=== PATIENT | female | born 1940 | race Caucasian/White ===

== ENCOUNTER 2021-03-27 14:05 | Inpatient (IN) | payer MEDICARE, OTHER ==
[~2021-03-27] VITALS: Ht 160 cm; Wt 55.2 kg
--- NOTE | 2021-03-27 15:00 | NUR ---
Admission Note with Justification for Admission to [facility] Patient admitted to [facility] for protective oversight for emergency stabilization of acute psychiatric crisis. Pt admitted from: SNF Mode of arrival: Secure Transport Accompanied By: Secure Transport Precipitating behaviors that initiated intake and admission: thinks staff are pushing her out of her chair, delusional- thinks she is going to win [employer] sweepstakes, anxious, demanding to leave and live on her own, agitated, refusing meds r/t paranoia, thinks people are stealing from her and becomes irritable with reality orientation, calling 911 from [facility] to report Description of failure of out patient attempts at stabilization in previous setting list behavior and medication trials: hospital, hospitalist recommends in pt tx, alprazolam prn Behaviors and assessment findings upon admission: Pt is very pleasant, social and cooperative with assessment. She is A&O x3. She is upset that she has been given a dementia diagnosis because she does not feel it is accurate "ask anyone I know and they'll tell you the same thing". Pt admitted to throwing herself out of her chair at facility when she did not get her way and that's "where I got all my bruises". Pt has cellulitis in BLLE that is currently being treated with antibiotics. She c/o pain in her neck and knees that is usually relieved by voltaren gel. Pt assisted into bed as she wished to lay down because her neck hurt. Will continue to monitor. Plan: Admit for protective oversight for adjustment and stabilization of medications, behaviors and mood. Intense treatment regimen including groups, medication adjustments, therapy, consistent regimen for ADL's, self care, and sleep hygiene. Daily monitoring by Inpatient staff, Psychiatry, and Medical Physician.
[2021-03-27] MEDS ORDERED: LINE600T12 PO (15:19)
[2021-03-27] MEDS ORDERED: OXYB10TA26 PO (15:19)
[2021-03-27] MEDS ORDERED: LEVO100T5 PO (15:19)
[2021-03-27] MEDS ORDERED: POLY2500 PO (15:19)
[2021-03-27] MEDS ORDERED: NYST15PO9 TP (15:19)
[2021-03-27] MEDS ORDERED: DICL100G28 TP (15:19)
[2021-03-27] MEDS ORDERED: FURO40TA4 PO (15:19)
[2021-03-27] MEDS ORDERED: NAPH15DR56 OU (15:19)
[2021-03-27] MEDS ORDERED: HYDR200T5 PO (15:19)
[2021-03-27] MEDS ORDERED: LORA10TA3 PO (15:19)
[2021-03-27] MEDS ORDERED: MUPI15CR8 TP (15:55)
[2021-03-27 15:59] VITALS: BP 97/58
[2021-03-27] MEDS ORDERED: MAGNESIUM HYDROXIDE 2,400 MG/30 ML ORAL.SUSP. PO PRN (16:00)
[2021-03-27] MEDS ORDERED: METHYL SALICYLATE/MENTHOL TOPICAL OINTMENT 57GM TUBE. TP PRN (16:00)
[2021-03-27] MEDS ORDERED: MAG HYDROX/AL HYDROX/SIMETH 30 ML ORAL.SUSP PO PRN (16:00)
[2021-03-27] MEDS ORDERED: MECL-75 PO (17:04)
[2021-03-27] MEDS ORDERED: PRED1TAB PO (17:04)
[2021-03-27] MEDS ORDERED: NYST15CR TP (17:04)
[2021-03-27] MEDS ORDERED: ACET500T68 PO (17:04)
[2021-03-27] MEDS ORDERED: ETAN50SY SQ (17:04)
[2021-03-27] MEDS ORDERED: ALPR0.254 PO (17:04)
[2021-03-27] MEDS ORDERED: ACET500C2 PO (17:04)
[2021-03-27] MEDS ORDERED: NYSTATIN 100,000 UNIT/GM TOPICAL CREAM 15GM TUBE. TP PRN (18:45)
[2021-03-27] MEDS ORDERED: NYSTATIN TOPICAL POWDER 15GM BOTTLE. TP PRN (18:45)
[2021-03-27] MEDS ORDERED: ACETAMINOPHEN 500 MG TABLET PO PRN (18:45)
[2021-03-27] MEDS ORDERED: MUPIROCIN 2% TOPICAL OINTMENT 22GM TUBE. TP PRN (19:15)
[2021-03-27] MEDS ORDERED: MECLIZINE 12.5 MG TABLET. PO PRN (19:15)
[2021-03-27] MEDS ORDERED: TETRAHYDROZOLINE 0.05% OPHTH SOLUTION 15ML BOTTLE. OU PRN (19:15)
[2021-03-27 20:16] LABS: BASO % 1 % (0-3); EOS # 0.1 x10^3/uL (0.0-0.7); EOS % 2 % (0-3); HEMATOCRIT 29.4 % (36.0-47.0); HEMOGLOBIN 9.4 g/dL (12.0-15.5); LYMPH # 2.5 x10^3/uL (1.0-4.8); LYMPH % 46 % (24-48); MEAN CORPUSCULAR HEMOGLOBIN 29 pg (25-35); MEAN CORPUSCULAR HGB CONC 32 g/dL (31-37); MEAN CORPUSCULAR VOLUME 90 fL (79-100); MONO # 0.7 x10^3/uL (0.0-1.1); MONO % 13 % (0-9); NEUT # 2.1 x10^3uL (1.8-7.7); NEUT % 38 % (31-73); PLATELET COUNT 273 x10^3/uL (140-400); RED BLOOD COUNT 3.26 x10^6/uL (3.50-5.40); RED CELL DISTRIBUTION WIDTH 16.1 % (11.5-14.5); WHITE BLOOD COUNT 5.4 x10^3/uL (4.0-11.0)
[2021-03-27 20:31] LABS: ALBUMIN 3.3 g/dL (3.4-5.0); ALBUMIN/GLOBULIN RATIO 0.8 (1.0-1.7); CALCIUM 9.6 mg/dL (8.5-10.1); CREATININE 1.3 mg/dL (0.6-1.0); GFR 39.4; MAGNESIUM 2.3 mg/dL (1.8-2.4); POTASSIUM 4.8 mmol/L (3.5-5.1); TOTAL BILIRUBIN 0.2 mg/dL (0.2-1.0); TOTAL PROTEIN 7.5 g/dL (6.4-8.2)
[2021-03-27] MEDS: LINEZOLID 600 MG TABLET PO SCH (20:58)
[2021-03-27] MEDS: DICLOFENAC SODIUM 1% TOPICAL GEL 100GM TUBE. TP SCH (20:58)
--- NOTE | 2021-03-27 22:02 | PDOC ---
Exam Note: Baljinder Note: Please also refer to the separate dictated note~for this date of service dictated separately.~Patient seen individually. Discussed the patient with Nursing staff reviewed the chart.~Reviewed interim history and current functioning. Reviewed vital signs,~Labs/ Radiology~and current medications noted below. Continue current treatment with the changes noted in the dictated addendum note Assessment: Vital Signs/I&O: Vital Signs Date Time Temp Pulse Resp B/P (MAP) Pulse Ox O2 Delivery O2 Flow Rate FiO2 03/27/21 15:59 97.5 96 18 97/58 (71) 93 Labs: Laboratory Tests Test 03/27/21 20:06 White Blood Count 5.4 x10^3/uL (4.0-11.0) Red Blood Count 3.26 x10^6/uL (3.50-5.40) L Hemoglobin 9.4 g/dL (12.0-15.5) L Hematocrit 29.4 % (36.0-47.0) L Mean Corpuscular Volume 90 fL (79-100) Mean Corpuscular Hemoglobin 29 pg (25-35) Mean Corpuscular Hemoglobin Concent 32 g/dL (31-37) Red Cell Distribution Width 16.1 % (11.5-14.5) H Platelet Count 273 x10^3/uL (140-400) Neutrophils (%) (Auto) 38 % (31-73) Lymphocytes (%) (Auto) 46 % (24-48) Monocytes (%) (Auto) 13 % (0-9) H Eosinophils (%) (Auto) 2 % (0-3) Basophils (%) (Auto) 1 % (0-3) Neutrophils # (Auto) 2.1 x10^3uL (1.8-7.7) Lymphocytes # (Auto) 2.5 x10^3/uL (1.0-4.8) Monocytes # (Auto) 0.7 x10^3/uL (0.0-1.1) Eosinophils # (Auto) 0.1 x10^3/uL (0.0-0.7) Basophils # (Auto) 0.0 x10^3/uL (0.0-0.2) D-Dimer (Melina) 0.55 mg/L (0.00-0.50) H Sodium Level 142 mmol/L (136-145) Potassium Level 4.8 mmol/L (3.5-5.1) Chloride Level 108 mmol/L (98-107) H Carbon Dioxide Level 27 mmol/L (21-32) Anion Gap 7 (6-14) Blood Urea Nitrogen 22 mg/dL (7-20) H Creatinine 1.3 mg/dL (0.6-1.0) H Estimated GFR (Cockcroft-Gault) 39.4 BUN/Creatinine Ratio 17 (6-20) Glucose Level 124 mg/dL (70-99) H Calcium Level 9.6 mg/dL (8.5-10.1) Magnesium Level 2.3 mg/dL (1.8-2.4) Total Bilirubin 0.2 mg/dL (0.2-1.0) Aspartate Amino Transferase (AST) 15 U/L (15-37) Alanine Aminotransferase (ALT) 17 U/L (14-59) Alkaline Phosphatase 73 U/L (46-116) Total Protein 7.5 g/dL (6.4-8.2) Albumin 3.3 g/dL (3.4-5.0) L Albumin/Globulin Ratio 0.8 (1.0-1.7) L Current Medications: Meds: Laboratory Tests Test 03/27/21 20:06 White Blood Count 5.4 x10^3/uL Red Blood Count 3.26 x10^6/uL Hemoglobin 9.4 g/dL Hematocrit 29.4 % Mean Corpuscular Volume 90 fL Mean Corpuscular Hemoglobin 29 pg Mean Corpuscular Hemoglobin Concent 32 g/dL Red Cell Distribution Width 16.1 % Platelet Count 273 x10^3/uL Neutrophils (%) (Auto) 38 % Lymphocytes (%) (Auto) 46 % Monocytes (%) (Auto) 13 % Eosinophils (%) (Auto) 2 % Basophils (%) (Auto) 1 % Neutrophils # (Auto) 2.1 x10^3uL Lymphocytes # (Auto) 2.5 x10^3/uL Monocytes # (Auto) 0.7 x10^3/uL Eosinophils # (Auto) 0.1 x10^3/uL Basophils # (Auto) 0.0 x10^3/uL D-Dimer (Melina) 0.55 mg/L Sodium Level 142 mmol/L Potassium Level 4.8 mmol/L Chloride Level 108 mmol/L Carbon Dioxide Level 27 mmol/L Anion Gap 7 Blood Urea Nitrogen 22 mg/dL Creatinine 1.3 mg/dL Estimated GFR (Cockcroft-Gault) 39.4 BUN/Creatinine Ratio 17 Glucose Level 124 mg/dL Calcium Level 9.6 mg/dL Magnesium Level 2.3 mg/dL Total Bilirubin 0.2 mg/dL Aspartate Amino Transf (AST/SGOT) 15 U/L Alanine Aminotransferase (ALT/SGPT) 17 U/L Alkaline Phosphatase 73 U/L Total Protein 7.5 g/dL Albumin 3.3 g/dL Albumin/Globulin Ratio 0.8 Current Medications Medications (Trade) Dose Ordered Sig/Yajaira Route PRN Reason Start Time Stop Time Status Last Admin Dose Admin Multi-Ingredient Ointment (Analgesic Brewster) 1 debbie PRN QID PRN TP MUSCLE PAIN 03/27/21 16:00 Al Hydroxide/Mg Hydroxide (Mylanta Plus Xs) 15 ml PRN AFTMEALHC PRN PO DYSPEPSIA 03/27/21 16:00 Magnesium Hydroxide (Milk Of Magnesia) 2,400 mg PRN QHS PRN PO CONSTIPATION 03/27/21 16:00 Acetaminophen (Tylenol) 1,000 mg PRN Q8HRS PRN PO MILD PAIN / TEMP > 100.3'F 03/27/21 18:45 UNV Alprazolam (Xanax) 0.25 mg PRN Q4HRS PRN PO ANXIETY / AGITATION 03/27/21 18:45 Diclofenac Sodium (Voltaren) 1 debbie QID TP 03/27/21 21:00 03/27/21 20:58 Furosemide (Lasix) 40 mg DAILY PO 03/28/21 09:00 Hydroxychloroquine Sulfate (Plaquenil) 200 mg DAILY PO 03/28/21 09:00 Levothyroxine Sodium (Synthroid) 100 mcg DAILY06 PO 03/28/21 06:00 Linezolid (Zyvox) 600 mg BID PO 03/27/21 21:00 03/31/21 09:01 03/27/21 20:58 Nystatin (Mycostatin) 1 debbie PRN BID PRN TP RASH 03/27/21 18:45 Nystatin (Nystop) 1 debbie PRN BID PRN TP RASH 03/27/21 18:45 Prednisone (Prednisone) 4 mg DAILY PO 03/28/21 09:00 Acetaminophen (Tylenol) 1,000 mg PRN Q6HRS PRN PO MILD PAIN / TEMP > 100.3'F 03/27/21 19:15 Non-Formulary Medication (Etanercept (Enbrel)) 50 mg WEEKLY SQ 04/03/21 09:00 UNV Cetirizine HCl (ZyrTEC) 10 mg DAILY PO 03/28/21 09:00 Meclizine HCl (Antivert) 25 mg PRN TID PRN PO DIZZINESS 03/27/21 19:15 Mupirocin (Bactroban) 1 debbie PRN BID PRN TP SORES ON EXTREMITIES 03/27/21 19:15 Tetrahydrozoline HCl (Murine) 1 drop PRN TID PRN OU dry/itchy eyes 03/27/21 19:15 Oxybutynin Chloride (Ditropan) 5 mg BID PO 03/28/21 09:00 Polyethylene Glycol (miraLAX) 17 gm DAILY PO 03/28/21 09:00 Current Medications Medications (Trade) Dose Ordered Sig/Yajaira Route PRN Reason Start Time Stop Time Status Last Admin Dose Admin Diclofenac Sodium (Voltaren) 1 debbie QID TP 03/27/21 21:00 03/27/21 20:58 Linezolid (Zyvox) 600 mg BID PO 03/27/21 21:00 03/31/21 09:01 03/27/21 20:58 I have reviewed the current psychotropics carefully including drug interactions. Risk benefit ratio favors no change other than as noted in my dictated progress note. Diagnosis: Problems: (1) Major depressive disorder with psychotic features DAMIR BOWIE MD Mar 27, 2021 22:01
--- NOTE | 2021-03-28 00:14 | NUR ---
Nursing Note The patient was located in her room for her assessment and medication pass. The patient was very pleasant and interactive with this nurse and talked about her love of dogs. The patient was alert to name date and location. The patient was compliant with her medication and took them whole. The patient is currently sleeping in her room.
[2021-03-28] MEDS: LEVOTHYROXINE 100 MCG TABLET PO SCH (05:56)
[2021-03-28 06:03] VITALS: BP 114/70
[2021-03-28] MEDS: OXYBUTYNIN CHLORIDE 5 MG TABLET PO SCH ×2 (08:41→20:35)
[2021-03-28] MEDS: POLYETHYLENE GLYCOL 3350 17 GM PACKET. PO SCH (08:41)
[2021-03-28] MEDS: LINEZOLID 600 MG TABLET PO SCH ×2 (08:41→21:16)
[2021-03-28] MEDS: HYDROXYCHLOROQUINE 200 MG TABLET PO SCH (08:41)
[2021-03-28] MEDS: FUROSEMIDE 40 MG TABLET PO SCH (08:41)
[2021-03-28] MEDS: CETIRIZINE HCL 10 MG TABLET PO SCH (08:41)
[2021-03-28] MEDS: predniSONE 1 MG TABLET PO SCH (08:41)
[2021-03-28] MEDS: ACETAMINOPHEN 500 MG TABLET PO PRN (08:42)
[2021-03-28] MEDS: DICLOFENAC SODIUM 1% TOPICAL GEL 100GM TUBE. TP SCH ×4 (08:46→20:35)
--- NOTE | 2021-03-28 09:44 | NUR ---
Pt A&O to name, , date, and location. She did not engage much further during assessment d/t c/o 10 pain in her R shoulder. PRN Acetaminophen 650 mg PO administered along with scheduled Voltaren gel applied topically. Pt assisted back into bed after breakfast per her request in hopes that rest will also alleviate the pain. Reassessment pending. She is compliant with whole medications. She is absent of SI/HI behaviors, denies VH/AH/delusions when asked. She is appropriate in her interactions and is able to make her needs known. Plan of care continues, will pass to next shift.
--- NOTE | 2021-03-28 09:54 | NUR ---
Lynne has [employer] insurance. Call placed to Ammy at [phone] to inform of admit and obtain authorization. Authorization number is [id number]. Next review will be due on 03/31/21. Call reference number for today's call is the authorization number noted above.
--- NOTE | 2021-03-28 10:20 | NUR ---
ACTIVITY THERAPY ASSESSMENT completed based on notes, observation and interview. Pt was laying in bed but willing to answer assessment questions. Pt was hyperverbal and hard to understand during interview. STRATEGIC MANAGER, MC asked pt what she enjoys doing for fun and she said "coloring pictures." Pt began to speak off topic for awhile and was hard to redirect. Pt denied a dementia diagnosis but said that she does have a bipolar diagnosis. Pt was able to answer orientation questions but expressed some frustration when answering and said that she doesn't have memory problems. Pt began to speak off topic again and talked in length about her family. Pt said that she has strained relationship with her two sons. Per notes pt has been compliant with medications and pleasant. Initial goal aimed to increase relaxation and socialization skills. Pt will participate in at least three Activity Therapy sessions per week.
[2021-03-28 13:51] LABS: BACTERIA,URINE 0 /HPF (0-FEW); BILIRUBIN,URINE NEG (NEG); CLARITY,URINE CLEAR; COLOR,URINE YELLOW; GLUCOSE,URINE NEG (NEG); NITRITE,URINE NEG (NEG); RBC,URINE RARE /HPF (0-2); SQUAMOUS EPITHELIAL CELL,UR OCC /LPF; UROBILINOGEN,URINE 0.2 mg/dL (0.2 mg/dL); WBC,URINE 0 /HPF (0-4)
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
[2021-03-28 15:39] VITALS: BP 102/57
[2021-03-28 18:46] LABS: THYROID STIM HORMONE (TSH) 2.851 uIU/mL (0.358-3.740)
--- NOTE | 2021-03-28 19:30 | HP ---
ADMIT DATE: 03/27/2021 PSYCHIATRIC ADMISSION HISTORY/EVALUATION This is a late entry, date of service 03/27/2021, covers the elements not covered in my initial note 03/27/2021. I met with the patient in the evening of 03/27/2021, discussed with Yarelis Santacruz, installation coordinator and nursing staff. IDENTIFYING DATA: The patient is an 80-year-old female referred to us from [facility] in [place], [place] with worsening diagnosis of major depressive disorder with psychotic features. She has been agitated at the facility, stated she was winning millions from sweepstakes, believing people were going through her mail to steal money, stated she was part of a group that takes care of dogs at the [facility]. She was accusing staff for pushing her out of her chair, repeatedly calling 911, refusing medications and calling out all hours of the day and night. She had failed outpatient psychiatric interventions with an acute exacerbation of her bipolar disorder and was referred for inpatient psychiatric stabilization. CHIEF COMPLAINT: "They would not take care of me when I was medically critical. I was having bowel problems and they did not take care of me. I am having heart problems. They are stealing things from me and my jewelry. 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 Apparently, she has two sons and they have no contact with her because of her mood swings and agitation possibly consequent to the bipolar disorder. She has been at the [facility] for some time, recently getting extremely psychotic, manic, grandiose, paranoid, disruptive and unmanageable. No active suicidal or homicidal ideation. PAST PSYCHIATRIC HISTORY: As above. MEDICAL HISTORY: Positive for anemia, external hemorrhoids, venous insufficiency, COPD, chronic constipation, cellulitis of legs, ulcer of foot, rheumatoid arthritis, degenerative joint disease, osteoporosis, edema, oropharyngeal dysphagia, urinary incontinence, functional urinary incontinence, chronic interstitial lung disease, chronic neck pain, bilateral osteoarthritis of knee, colon biopsy, thyroidectomy, cholecystectomy, right shoulder arthroplasty. ACCU-CHEKS: None. ALLERGIES: Negative. CODE STATUS: Full code. DIET: Heart healthy regular. Takes medications whole. Ambulates with walker with standby assist. CURRENT PSYCHOTROPICS: Xanax p.r.n. FAMILY HISTORY: Noncontributory. SOCIAL HISTORY: No alcohol, drug abuse, physical, sexual or elder abuse history is noted. The patient is not known to be a perpetrator. REACTION TO HOSPITALIZATION: The patient accepting reluctantly. ASSETS: Supportive living at the above facility. Her friend is her DPPOLA. REVIEW OF SYSTEMS: Ambulation impaired with walker. No CV, , pulmonary, eye system symptoms on review. MENTAL STATUS EXAM: The patient seen individually in the evening of 03/27/2021. She is oriented to self and situation. Speech coherent, rapid at times, quite manic, grandiose, paranoid. Abstraction fair. Computation impaired. Language function intact. Attention span short. Mood and affect, lability is evident. Attention span short. LABORATORY DATA: Reviewed. IMPRESSION: Bipolar 1 disorder, mixed with psychotic features; anxiety disorder, unspecified; impulse control disorder, unspecified, mild cognitive impairment. Rest unchanged from above. PLAN: Admit to geropsychiatry unit at [facility]. I will see the patient daily individually from a psychiatric standpoint, medical followup with Dr. Vo/Dr. Mahmood. Continue current psychotropics. Observe baseline, adjust as clinically indicated. Given a history of bipolar disorder may consider Depakote as a mood stabilizer. ESTIMATED LENGTH OF STAY: 10-12 days. DISPOSITION PLANS: Back to [facility] in [place] when she is psychiatrically stable. LUL MCBRIDE: VINNY/dewey TID: [id number]
[2021-03-28] MEDS: DOXYCYCLINE HYCLATE 100 MG TABLET PO SCH (20:35)
[2021-03-28] MEDS: LACTOBACILLUS RHAMNOSUS GG 1 CAPSULE. PO SCH (20:35)
[2021-03-28] MEDS: SMZ/TMP 800/160MG TABLET. PO SCH (20:35)
[2021-03-28] MEDS: MIRTAZAPINE 7.5 MG TABLET. PO SCH (20:35)
[2021-03-28] MEDS: risperiDONE 0.25 MG TABLET. PO SCH (20:35)
[2021-03-28 22:11] LABS: THYROXINE 8.2 ug/dL (4.5-12.0)
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
--- NOTE | 2021-03-29 01:03 | CONS ---
DATE OF CONSULTATION: 03/28/2021 ATTENDING PHYSICIAN: Dr. Bowie. REASON FOR CONSULTATION: We are asked to see the patient for medical consultation. HISTORY OF PRESENT ILLNESS: The patient is an 80-year-[place] is at a [facility]. She has profound dementia. She has impairment in her cognition. She has generalized debilitation and cellulitis in the legs. She has been refusing meds and thinks people are stealing from her and so paranoia is an issue. She is admitted here for further treatment and evaluation. She has a durable power of divorce attorney, Dr. Noble is her primary care doctor. PAST MEDICAL HISTORY: Gleaned from the chart. She has a longstanding history of degenerative arthritis along with hypothyroidism and urinary incontinence. CURRENT MEDICATIONS: Include Tylenol, alprazolam, diclofenac, Enbrel, Lasix, hydroxychloroquine, Synthroid, Zyvox for 5 days, loratadine, meclizine, ____, nystatin, oxybutynin, MiraLax, and prednisone. ALLERGIES: She has no known drug allergies. SOCIAL HISTORY: She is a nonsmoker, nondrinker. REVIEW OF SYSTEMS: Unobtainable. FAMILY HISTORY: Unobtainable. PHYSICAL EXAMINATION: GENERAL: When I saw her, this is a pleasant elderly, confused female. VITAL SIGNS: Her initial vital signs showed a blood pressure of 114/70, pulse is 97 and regular. She was afebrile, oxygen saturation 94% on room air. HEENT: Head is without trauma. Pupils are reactive. Sclerae nonicteric. The oropharynx is clear. She is edentulous. NECK: Supple, no bruits, no stridor. LUNGS: Good breath sounds. CARDIOVASCULAR: Regular heart tones. No gallop. ABDOMEN: Soft. EXTREMITIES: Showed 2+ edema. There is redness and erythema extending all the way up to her shins and knees with lines of demarcation. There are no open wounds that are obvious. NEUROLOGIC: Focally intact. She is profoundly confused. PERTINENT LABORATORY STUDIES: Her white count was 9400, hemoglobin 9.5 grams. Electrolytes within normal range. Creatinine 1.3 mg/dL. Transaminases are normal. Nonfasting blood sugar 124 mg/dL. ASSESSMENT: 1. This 80-year-old female is admitted with profound dementia and behavioral issues. 2. Bilateral cellulitis of the lower extremities. I believe this is a combination of stasis dermatitis and poor circulation. Most likely it is a Staphylococcus infection. 3. Anemia of chronic disease. 4. Questionable rheumatoid arthritis. She is on meds for rheumatoid. 5. Anemia of chronic disease. RECOMMENDATIONS: 1. Home meds were reviewed and continued. 2. I do not think we have Zyvox available here. I would recommend a combination of doxycycline 100 mg p.o. b.i.d. for 7 more days and Bactrim-DS 1 p.o. b.i.d. for 7 days for her infection. Thank you again for asking to see the patient for medical consultation. She is otherwise stable at this time. We should gladly follow along during her inpatient stay. She is a DNR per advanced directive, we will respect her advanced directive. POLY DR: Eun TID: [id number] CC: DAMIR BOWIE MD
[2021-03-29] MEDS: LEVOTHYROXINE 100 MCG TABLET PO SCH (05:31)
[2021-03-29 06:29] VITALS: BP 123/70
--- NOTE | 2021-03-29 07:41 | NUR ---
Morning dose of Linelozid held pending ABT review with Dr Vo.
[2021-03-29] MEDS: SMZ/TMP 800/160MG TABLET. PO SCH ×2 (08:26→20:24)
[2021-03-29] MEDS: FUROSEMIDE 40 MG TABLET PO SCH (08:26)
[2021-03-29] MEDS: DOXYCYCLINE HYCLATE 100 MG TABLET PO SCH ×2 (08:26→20:23)
[2021-03-29] MEDS: LACTOBACILLUS RHAMNOSUS GG 1 CAPSULE. PO SCH ×2 (08:26→20:23)
[2021-03-29] MEDS: OXYBUTYNIN CHLORIDE 5 MG TABLET PO SCH ×2 (08:26→20:23)
[2021-03-29] MEDS: POLYETHYLENE GLYCOL 3350 17 GM PACKET. PO SCH (08:26)
[2021-03-29] MEDS: SERTRALINE 25 MG TABLET. PO SCH (08:27)
[2021-03-29] MEDS: CETIRIZINE HCL 10 MG TABLET PO SCH (08:27)
[2021-03-29] MEDS: predniSONE 1 MG TABLET PO SCH (08:27)
[2021-03-29] MEDS: HYDROXYCHLOROQUINE 200 MG TABLET PO SCH (08:27)
--- NOTE | 2021-03-29 08:51 | PDOC ---
Exam Note: Baljinder Note: Lte entry for . Please also refer to the separate dictated note~for this date of service dictated separately.~Patient seen individually. Discussed the patient with Nursing staff reviewed the chart.~Reviewed interim history and current functioning. Reviewed vital signs,~Labs/ Radiology~and current medicat ions noted below. Continue current treatment with the changes noted in the dictated addendum note Assessment: Vital Signs/I&O: Vital Signs Date Time Temp Pulse Resp B/P (MAP) Pulse Ox O2 Delivery O2 Flow Rate FiO2 03/29/21 06:29 97.5 74 16 123/70 (87) 100 I & O 03/28/21 03/28/21 03/29/21 15:00 23:00 07:00 Intake Total 380 ml 450 ml Balance 380 ml 450 ml Labs: Laboratory Tests Test 03/28/21 13:00 Urine Collection Type Clean catch Urine Color Yellow Urine Clarity Clear Urine pH 6.0 Urine Specific [place] 1.020 Urine Protein Neg (NEG-TRACE) Urine Glucose (UA) Neg mg/dL (NEG) Urine Ketones (Stick) Neg mg/dL (NEG) Urine Blood Neg (NEG) Urine Nitrite Neg (NEG) Urine Bilirubin Neg (NEG) Urine Urobilinogen Dipstick 0.2 mg/dL (0.2 mg/dL) Urine Leukocyte Esterase Neg (NEG) Urine RBC Rare /HPF (0-2) Urine WBC 0 /HPF (0-4) Urine Squamous Epithelial Cells Occ /LPF Urine Bacteria 0 /HPF (0-FEW) Current Medications: Meds: Current Medications Medications (Trade) Dose Ordered Sig/Yajaira Route PRN Reason Start Time Stop Time Status Last Admin Dose Admin Furosemide (Lasix) 40 mg DAILY PO 03/28/21 09:00 03/29/21 08:26 Hydroxychloroquine Sulfate (Plaquenil) 200 mg DAILY PO 03/28/21 09:00 03/29/21 08:27 Prednisone (Prednisone) 4 mg DAILY PO 03/28/21 09:00 03/29/21 08:27 Cetirizine HCl (ZyrTEC) 10 mg DAILY PO 03/28/21 09:00 03/29/21 08:27 Oxybutynin Chloride (Ditropan) 5 mg BID PO 03/28/21 09:00 03/29/21 08:26 Polyethylene Glycol (miraLAX) 17 gm DAILY PO 03/28/21 09:00 03/29/21 08:26 Mirtazapine (Remeron) 7.5 mg QHS PO 03/28/21 21:00 03/28/21 20:35 Sertraline HCl (Zoloft) 25 mg DAILY PO 03/29/21 09:00 03/31/21 21:00 03/29/21 08:27 Risperidone (RisperDAL) 0.25 mg HS PO 03/28/21 21:00 03/28/21 20:35 Doxycycline Hyclate (Vibra-Tab) 100 mg BID PO 03/28/21 21:00 04/04/21 13:00 03/29/21 08:26 Trimethoprim/ Sulfamethoxazole (Bactrim Ds) 1 tab BID PO 03/28/21 21:00 04/04/21 13:00 03/29/21 08:26 Lactobacillus Rhamnosus (Culturelle) 1 cap BID PO 03/28/21 21:00 03/29/21 08:26 I have reviewed the current psychotropics carefully including drug interactions. Risk benefit ratio favors no change other than as noted in my dictated progress note. Diagnosis: Problems: (1) Bipolar disorder, current episode mixed, severe, with psychotic features (2) Anxiety disorder, unspecified (3) Impulse control disorder, unspecified (4) Mild cognitive impairment DAMIR BOWIE MD Mar 29, 2021 08:51
[2021-03-29] MEDS: LINEZOLID 600 MG TABLET PO SCH (09:00)
[2021-03-29] MEDS: DICLOFENAC SODIUM 1% TOPICAL GEL 100GM TUBE. TP SCH ×4 (09:00→20:26)
--- NOTE | 2021-03-29 09:26 | NUR ---
Pt A&O to name, , date, and location. She expresses relief that the swelling in her BLE has subsided a little bit, but states she is still experiencing pain. RLE is noticeably more swollen than LLE. Pt is currently ordered 3 ABT (Bactrim DS, Linezolid, and Doxycycline). Please see previous note about Linezolid being held. Pt has spent some of the morning coloring, and she expresses how much she enjoys doing artwork. She is compliant with whole medications. She is absent of SI/HI behaviors, denies VH/AH/delusions when asked. She is appropriate in her interactions and is able to make her needs known. Plan of care continues, will pass to next shift.
[2021-03-29 16:03] VITALS: BP 106/69
[2021-03-29] MEDS: risperiDONE 0.25 MG TABLET. PO SCH (20:23)
[2021-03-29] MEDS: MIRTAZAPINE 7.5 MG TABLET. PO SCH (20:23)
--- NOTE | 2021-03-29 21:38 | PDOC ---
Exam Note: Baljinder Note: Please also refer to the separate dictated note~for this date of service dictated separately.~Patient seen individually. Discussed the patient with Nursing staff reviewed the chart.~Reviewed interim history and current functioning. Reviewed vital signs,~Labs/ Radiology~and current medications noted below. Continue current treatment with the changes noted in the dictated addendum note Assessment: Vital Signs/I&O: Vital Signs Date Time Temp Pulse Resp B/P (MAP) Pulse Ox O2 Delivery O2 Flow Rate FiO2 03/29/21 16:03 98.8 94 19 106/69 (81) 95 Room Air I & O 03/28/21 03/28/21 03/29/21 15:00 23:00 07:00 Intake Total 380 ml 450 ml Balance 380 ml 450 ml Current Medications: Meds: Current Medications Medications (Trade) Dose Ordered Sig/Yajaira Route PRN Reason Start Time Stop Time Status Last Admin Dose Admin Multi-Ingredient Ointment (Analgesic [place]) 1 debbie PRN QID PRN TP MUSCLE PAIN 03/27/21 16:00 Al Hydroxide/Mg Hydroxide (Mylanta Plus Xs) 15 ml PRN AFTMEALHC PRN PO DYSPEPSIA 03/27/21 16:00 Magnesium Hydroxide (Milk Of Magnesia) 2,400 mg PRN QHS PRN PO CONSTIPATION 03/27/21 16:00 Acetaminophen (Tylenol) 1,000 mg PRN Q8HRS PRN PO MILD PAIN / TEMP > 100.3'F 03/27/21 18:45 UNV Alprazolam (Xanax) 0.25 mg PRN Q4HRS PRN PO ANXIETY / AGITATION 03/27/21 18:45 Diclofenac Sodium (Voltaren) 1 debbie QID TP 03/27/21 21:00 03/29/21 20:26 Furosemide (Lasix) 40 mg DAILY PO 03/28/21 09:00 03/29/21 08:26 Hydroxychloroquine Sulfate (Plaquenil) 200 mg DAILY PO 03/28/21 09:00 03/29/21 08:27 Levothyroxine Sodium (Synthroid) 100 mcg DAILY06 PO 03/28/21 06:00 03/29/21 05:31 Linezolid (Zyvox) 600 mg BID PO 03/27/21 21:00 03/29/21 10:25 DC 03/28/21 21:16 Nystatin (Mycostatin) 1 debbie PRN BID PRN TP RASH 03/27/21 18:45 Nystatin (Nystop) 1 debbie PRN BID PRN TP RASH 03/27/21 18:45 Prednisone (Prednisone) 4 mg DAILY PO 03/28/21 09:00 03/29/21 08:27 Acetaminophen (Tylenol) 1,000 mg PRN Q6HRS PRN PO MILD PAIN / TEMP > 100.3'F 03/27/21 19:15 03/28/21 08:42 Non-Formulary Medication (Etanercept (Enbrel)) 50 mg WEEKLY SQ 04/03/21 09:00 UNV Cetirizine HCl (ZyrTEC) 10 mg DAILY PO 03/28/21 09:00 03/29/21 08:27 Meclizine HCl (Antivert) 25 mg PRN TID PRN PO DIZZINESS 03/27/21 19:15 Mupirocin (Bactroban) 1 debbie PRN BID PRN TP SORES ON EXTREMITIES 03/27/21 19:15 Tetrahydrozoline HCl (Murine) 1 drop PRN TID PRN OU dry/itchy eyes 03/27/21 19:15 Oxybutynin Chloride (Ditropan) 5 mg BID PO 03/28/21 09:00 03/29/21 20:23 Polyethylene Glycol (miraLAX) 17 gm DAILY PO 03/28/21 09:00 03/29/21 08:26 Mirtazapine (Remeron) 7.5 mg QHS PO 03/28/21 21:00 03/29/21 20:23 Sertraline HCl (Zoloft) 25 mg DAILY PO 03/29/21 09:00 03/31/21 21:00 03/29/21 08:27 Sertraline HCl (Zoloft) 50 mg DAILY PO 04/01/21 09:00 Risperidone (RisperDAL) 0.25 mg HS PO 03/28/21 21:00 03/29/21 20:23 Doxycycline Hyclate (Vibra-Tab) 100 mg BID PO 03/28/21 21:00 04/04/21 13:00 03/29/21 20:23 Trimethoprim/ Sulfamethoxazole (Bactrim Ds) 1 tab BID PO 03/28/21 21:00 04/04/21 13:00 03/29/21 20:24 Lactobacillus Rhamnosus (Culturelle) 1 cap BID PO 03/28/21 21:00 03/29/21 20:23 Current Medications Medications (Trade) Dose Ordered Sig/Yajaira Route PRN Reason Start Time Stop Time Status Last Admin Dose Admin Sertraline HCl (Zoloft) 25 mg DAILY PO 03/29/21 09:00 03/31/21 21:00 03/29/21 08:27 I have reviewed the current psychotropics carefully including drug interactions. Risk benefit ratio favors no change other than as noted in my dictated progress note. Diagnosis: Problems: (1) Impulse control disorder, unspecified (2) Mild cognitive impairment (3) Anxiety disorder, unspecified (4) Bipolar disorder, current episode mixed, severe, with psychotic features DAMIR BOWIE MD Mar 29, 2021 21:38
--- NOTE | 2021-03-29 21:51 | PN ---
DATE: 03/28/2021 PSYCHIATRIC PROGRESS NOTE This is a late entry 03/28/2021 covers elements not covered in the initial note. HISTORY OF PRESENT ILLNESS: I met the patient on the evening of 03/28/2021 in her room at length and the patient was staffed at treatment team meeting with entire team in the morning including Andie Cardoso, and Yarelis Santacruz, record center coordinator and social service staff and [facility] activity therapy staff and MADAY Santana. The patient slept 3-1/2 hours previous night. The patient is alert, oriented x3, complains of pain in her shoulder. She may have a possible UTI. Her power of bankruptcy attorney is her cousin's as she has distanced herself from her sons who she states "they hate me." She does have a Staph cellulitis. REVIEW OF SYSTEMS: Ambulation impaired with walker. No CV, , pulmonary, eye system symptoms on review. MENTAL STATUS EXAMINATION: Oriented to herself, situation. Speech coherent, rapid, somewhat hyperverbal, consistent with her bipolar disorder and she readily admits and seems to understand her bipolar diagnosis. Abstraction fair. Computation impaired. Language function intact. Mood and affect labile, anxious, somewhat paranoid. No suicidal or homicidal ideation. She is distractable. LABORATORY DATA: Reviewed. IMPRESSION: Bipolar 1 disorder, mixed with psychotic features; anxiety disorder, unspecified; impulse control disorder, unspecified. PLAN: Start Remeron 7.5 mg p.o. at bedtime to help with her insomnia and anxiety, Risperdal 0.25 mg p.o. at bedtime, Zoloft 25 mg a day for 3 days, then 50 mg a day after that. We will consider low dose Depakote for her bipolar diagnosis, but we will first see how she does with the above changes and then decide. MARGARITA DR: Gamaliel TID: [id number]
--- NOTE | 2021-03-29 23:29 | NUR ---
Patient was in her room, in bed doing crossword puzzles. She stated she laughed and said she was "cheating" and looking at the answers as she went along. Patient in good spirits tonight, she was talking about how she enjoys playing [employer], entering [employer] and supporting charitable organizations. She stated that "[employer]" is her favorite organization because they help animals. Patient medication compliant and cooperative with staff. Patient stated that she felt that her left leg is less swollen today. Her right lower leg is reddened and warm to the touch, she has a diagnosis of Staph infection and is on two antibiotics for it.
--- NOTE | 2021-03-30 04:22 | NUR ---
Patient is awake and angry. She has asked to leave, and wanted to know who her DPOA is. When told the name of the DPOA she got angrier. Patient is stating we are dehydrating her. She currently has ice water available to her on the bedside table. She is demanding a Coke and was told that we cannot give her a Coke right now as it is 0400 and she needs to get some sleep. Will continue to monitor.
[2021-03-30] MEDS: LEVOTHYROXINE 100 MCG TABLET PO SCH (05:21)
[2021-03-30 06:17] VITALS: BP 110/71
[2021-03-30] MEDS: OXYBUTYNIN CHLORIDE 5 MG TABLET PO SCH ×2 (08:31→20:29)
[2021-03-30] MEDS: CETIRIZINE HCL 10 MG TABLET PO SCH (08:31)
[2021-03-30] MEDS: SMZ/TMP 800/160MG TABLET. PO SCH ×2 (08:31→20:29)
[2021-03-30] MEDS: FUROSEMIDE 40 MG TABLET PO SCH (08:31)
[2021-03-30] MEDS: LACTOBACILLUS RHAMNOSUS GG 1 CAPSULE. PO SCH ×2 (08:32→20:29)
[2021-03-30] MEDS: predniSONE 1 MG TABLET PO SCH (08:32)
[2021-03-30] MEDS: HYDROXYCHLOROQUINE 200 MG TABLET PO SCH (08:32)
[2021-03-30] MEDS: POLYETHYLENE GLYCOL 3350 17 GM PACKET. PO SCH (08:32)
[2021-03-30] MEDS: DOXYCYCLINE HYCLATE 100 MG TABLET PO SCH ×2 (08:32→20:29)
[2021-03-30] MEDS: SERTRALINE 25 MG TABLET. PO SCH (08:32)
[2021-03-30] MEDS: DICLOFENAC SODIUM 1% TOPICAL GEL 100GM TUBE. TP SCH ×4 (09:00→20:31)
--- NOTE | 2021-03-30 10:27 | NUR ---
Pt cooperative and appropriate this morning. She displays very well memory recall, such as recalling a visit from Dr Snyder the previous evening. She is A&Ox3, absent of SI/HI/VH/AH/delusions. She reports 5/10 pain in the R shoulder and knees. Scheduled Voltaren gel applied. She voices concern about how her RLE is noticeably more swollen than the LLE. She also appears to be concerned about having a bowel movement although she apparently had one on 03/28. She is compliant with whole medications. After breakfast she retired back to bed and appears to be resting comfortably. Plan of care continues, will pass to next shift.
--- NOTE | 2021-03-30 12:21 | PN ---
DATE: 03/29/2021 PSYCHIATRIC PROGRESS NOTE This is a late entry, 03/29/2021, covers the elements not covered in my initial note. SUBJECTIVE: The patient slept 6-1/4 hours the previous night. Discussed with MADAY Santana. The patient is compliant with medications. No overt delusions, but remains hyperverbal. We had a very lengthy discussion about her bipolar diagnosis and she is able to relate that she has had this for many years and at times finds her mind difficult to control as it races. She is not willing to go back to the [employer] [place] [facility] [place] and we addressed this, will defer to social service staff. REVIEW OF SYSTEMS: Ambulation impaired with walker. No CV, , pulmonary, eye system symptoms on review. MENTAL STATUS EXAMINATION: Reasonably oriented. Speech coherent, rapid at times. Abstraction fair. Computation impaired. Language function intact. Attention span short. Mood and affect labile. Labs reviewed. DIAGNOSES: Bipolar 1 disorder, mixed. Anxiety disorder, unspecified. Rest unchanged. PLAN: Continue psychotropics from initial note. We have initiated Remeron, Risperdal, Zoloft, may consider mood stabilizer, perhaps low dose Depakote if bipolar symptoms persist despite the above. Reviewed drug interactions, risk and benefit ratio. VINNY/JOHN DR: Gamaliel TID: [id number]
[2021-03-30 15:42] VITALS: BP 97/66
[2021-03-30] MEDS: MIRTAZAPINE 7.5 MG TABLET. PO SCH (20:29)
[2021-03-30] MEDS: risperiDONE 0.25 MG TABLET. PO SCH (20:29)
[2021-03-30] MEDS: traZODone 50 MG TABLET. PO PRN (20:31)
[2021-03-30] MEDS: ALPRAZolam 0.25 MG TABLET PO PRN (20:47)
--- NOTE | 2021-03-30 21:36 | PDOC ---
Exam Note: Baljinder Note: Please also refer to the separate dictated note~for this date of service dictated separately.~Patient seen individually. Discussed the patient with Nursing staff reviewed the chart.~Reviewed interim history and current functioning. Reviewed vital signs,~Labs/ Radiology~and current medications noted below. Continue current treatment with the changes noted in the dictated addendum note Assessment: Vital Signs/I&O: Vital Signs Date Time Temp Pulse Resp B/P (MAP) Pulse Ox O2 Delivery O2 Flow Rate FiO2 03/30/21 15:42 98.8 94 16 97/66 (76) 96 Room Air I & O 03/29/21 03/29/21 03/30/21 15:00 23:00 07:00 Intake Total 600 ml 480 ml Balance 600 ml 480 ml Current Medications: Meds: Current Medications Medications (Trade) Dose Ordered Sig/Yajaira Route PRN Reason Start Time Stop Time Status Last Admin Dose Admin Multi-Ingredient Ointment (Analgesic [place]) 1 debbie PRN QID PRN TP MUSCLE PAIN 03/27/21 16:00 Al Hydroxide/Mg Hydroxide (Mylanta Plus Xs) 15 ml PRN AFTMEALHC PRN PO DYSPEPSIA 03/27/21 16:00 Magnesium Hydroxide (Milk Of Magnesia) 2,400 mg PRN QHS PRN PO CONSTIPATION 03/27/21 16:00 Acetaminophen (Tylenol) 1,000 mg PRN Q8HRS PRN PO MILD PAIN / TEMP > 100.3'F 03/27/21 18:45 UNV Alprazolam (Xanax) 0.25 mg PRN Q4HRS PRN PO ANXIETY / AGITATION 03/27/21 18:45 03/30/21 20:47 Diclofenac Sodium (Voltaren) 1 debbie QID TP 03/27/21 21:00 03/30/21 20:31 Furosemide (Lasix) 40 mg DAILY PO 03/28/21 09:00 03/30/21 08:31 Hydroxychloroquine Sulfate (Plaquenil) 200 mg DAILY PO 03/28/21 09:00 03/30/21 08:32 Levothyroxine Sodium (Synthroid) 100 mcg DAILY06 PO 03/28/21 06:00 03/30/21 05:21 Linezolid (Zyvox) 600 mg BID PO 03/27/21 21:00 03/29/21 10:25 DC 03/28/21 21:16 Nystatin (Mycostatin) 1 debbie PRN BID PRN TP RASH 03/27/21 18:45 Nystatin (Nystop) 1 debbie PRN BID PRN TP RASH 03/27/21 18:45 Prednisone (Prednisone) 4 mg DAILY PO 03/28/21 09:00 03/30/21 08:32 Acetaminophen (Tylenol) 1,000 mg PRN Q6HRS PRN PO MILD PAIN / TEMP > 100.3'F 03/27/21 19:15 03/28/21 08:42 Non-Formulary Medication (Etanercept (Enbrel)) 50 mg WEEKLY SQ 04/03/21 09:00 UNV Cetirizine HCl (ZyrTEC) 10 mg DAILY PO 03/28/21 09:00 03/30/21 08:31 Meclizine HCl (Antivert) 25 mg PRN TID PRN PO DIZZINESS 03/27/21 19:15 Mupirocin (Bactroban) 1 debbie PRN BID PRN TP SORES ON EXTREMITIES 03/27/21 19:15 Tetrahydrozoline HCl (Murine) 1 drop PRN TID PRN OU dry/itchy eyes 03/27/21 19:15 Oxybutynin Chloride (Ditropan) 5 mg BID PO 03/28/21 09:00 03/30/21 20:29 Polyethylene Glycol (miraLAX) 17 gm DAILY PO 03/28/21 09:00 03/30/21 08:32 Mirtazapine (Remeron) 7.5 mg QHS PO 03/28/21 21:00 03/30/21 20:29 Sertraline HCl (Zoloft) 25 mg DAILY PO 03/29/21 09:00 03/31/21 21:00 03/30/21 08:32 Sertraline HCl (Zoloft) 50 mg DAILY PO 04/01/21 09:00 Risperidone (RisperDAL) 0.25 mg HS PO 03/28/21 21:00 03/30/21 20:29 Doxycycline Hyclate (Vibra-Tab) 100 mg BID PO 03/28/21 21:00 04/04/21 13:00 03/30/21 20:29 Trimethoprim/ Sulfamethoxazole (Bactrim Ds) 1 tab BID PO 03/28/21 21:00 04/04/21 13:00 03/30/21 20:29 Lactobacillus Rhamnosus (Culturelle) 1 cap BID PO 03/28/21 21:00 03/30/21 20:29 Divalproex Sodium (Depakote Sprinkles) 250 mg BID@0900,1700 PO 03/31/21 09:00 Trazodone HCl (Desyrel) 50 mg PRN QHS PRN PO INSOMNIA, MAY REPEAT X1 03/30/21 20:00 03/30/21 20:31 Current Medications Medications (Trade) Dose Ordered Sig/Yajaira Route PRN Reason Start Time Stop Time Status Last Admin Dose Admin Trazodone HCl (Desyrel) 50 mg PRN QHS PRN PO INSOMNIA, MAY REPEAT X1 03/30/21 20:00 03/30/21 20:31 I have reviewed the current psychotropics carefully including drug interactions. Risk benefit ratio favors no change other than as noted in my dictated progress note. Diagnosis: Problems: (1) Bipolar disorder, current episode mixed, severe, with psychotic features (2) Impulse control disorder, unspecified (3) Mild cognitive impairment (4) Anxiety disorder, unspecified DAMIR BOWIE MD Mar 30, 2021 21:36
--- NOTE | 2021-03-30 22:45 | NUR ---
Pt sitting in hallway this evening. Pt highly anxious, hyperverbal with garbled speech. Pt repeatedly stating that she needs to get into her lockbox because she has one million dollars in there. Pt also somatic; stating that she has a bowel obstruction and was witnessed attempting to dig herself out. Pt has active bowel sounds. Will pass on pt's complaint to dayshift. Compliant with whole medications. PRN Trazodone and Xanax administered with HS medications.
[2021-03-31] MEDS: LEVOTHYROXINE 100 MCG TABLET PO SCH (05:45)
[2021-03-31 06:01] VITALS: BP 138/83
[2021-03-31] MEDS: DICLOFENAC SODIUM 1% TOPICAL GEL 100GM TUBE. TP SCH ×4 (09:00→20:48)
[2021-03-31] MEDS: POLYETHYLENE GLYCOL 3350 17 GM PACKET. PO SCH (09:04)
[2021-03-31] MEDS: SMZ/TMP 800/160MG TABLET. PO SCH ×2 (09:05→20:48)
[2021-03-31] MEDS: predniSONE 1 MG TABLET PO SCH (09:05)
[2021-03-31] MEDS: LACTOBACILLUS RHAMNOSUS GG 1 CAPSULE. PO SCH ×2 (09:05→20:48)
[2021-03-31] MEDS: CETIRIZINE HCL 10 MG TABLET PO SCH (09:05)
[2021-03-31] MEDS: DOXYCYCLINE HYCLATE 100 MG TABLET PO SCH ×2 (09:05→20:48)
[2021-03-31] MEDS: SERTRALINE 25 MG TABLET. PO SCH (09:05)
[2021-03-31] MEDS: OXYBUTYNIN CHLORIDE 5 MG TABLET PO SCH ×2 (09:05→20:48)
[2021-03-31] MEDS: FUROSEMIDE 40 MG TABLET PO SCH (09:05)
[2021-03-31] MEDS: DIVALPROEX 125 MG CAP.SPRINK PO SCH ×2 (09:05→17:41)
[2021-03-31] MEDS: HYDROXYCHLOROQUINE 200 MG TABLET PO SCH (09:06)
--- NOTE | 2021-03-31 11:41 | EKG ---
[address] [address] Test Date: 2021-03-27 Test Time: 20:31:42 Pat Name: ZAMZAM DAVIS Department: Room: [address] [place] [address] Gender: F Research Biostatistician: : 1940 Requested By: DAMIR BOWIE Order Number: [id number] Reading MD: Gold Duran MD Measurements Intervals [place] Rate: P: [place]: QRS: QRSD: T: QT: QTc: Interpretive Statements SR LBBB Electronically Signed On 03-31-2021 11:40:32 CDT by Gold Duran MD
--- NOTE | 2021-03-31 12:16 | NUR ---
[employer] review completed with Ambreen at [phone], ext [phone]. Next review is due on 04/02/21, 11:30am RESEARCH ADMINISTRATOR.
--- NOTE | 2021-03-31 15:03 | NUR ---
Nursing note: Pt asleep in bed at time of AM med pass and assessment. She was able to be woken to take her meds, but would not answer any questions, immediately going back to sleep. Pt has been in bed sleeping for most of the shift. Will continue to monitor.
[2021-03-31 15:49] VITALS: BP 110/72
[2021-03-31] MEDS: risperiDONE 0.25 MG TABLET. PO SCH (20:48)
[2021-03-31] MEDS: MIRTAZAPINE 7.5 MG TABLET. PO SCH (20:48)
--- NOTE | 2021-03-31 21:34 | PDOC ---
Exam Note: Baljinder Note: Please also refer to the separate dictated note~for this date of service dictated separately.~Patient seen individually. Discussed the patient with Nursing staff reviewed the chart.~Reviewed interim history and current functioning. Reviewed vital signs,~Labs/ Radiology~and current medications noted below. Continue current treatment with the changes noted in the dictated addendum note Assessment: Vital Signs/I&O: Vital Signs Date Time Temp Pulse Resp B/P (MAP) Pulse Ox O2 Delivery O2 Flow Rate FiO2 03/31/21 15:49 98.3 92 16 110/72 (85) 90 03/30/21 15:42 Room Air I & O 03/30/21 03/30/21 03/31/21 15:00 23:00 07:00 Intake Total 240 ml 600 ml Balance 240 ml 600 ml Current Medications: Meds: Current Medications Medications (Trade) Dose Ordered Sig/Yajaira Route PRN Reason Start Time Stop Time Status Last Admin Dose Admin Multi-Ingredient Ointment (Analgesic [place]) 1 debbie PRN QID PRN TP MUSCLE PAIN 03/27/21 16:00 Al Hydroxide/Mg Hydroxide (Mylanta Plus Xs) 15 ml PRN AFTMEALHC PRN PO DYSPEPSIA 03/27/21 16:00 Magnesium Hydroxide (Milk Of Magnesia) 2,400 mg PRN QHS PRN PO CONSTIPATION 03/27/21 16:00 Acetaminophen (Tylenol) 1,000 mg PRN Q8HRS PRN PO MILD PAIN / TEMP > 100.3'F 03/27/21 18:45 UNV Alprazolam (Xanax) 0.25 mg PRN Q4HRS PRN PO ANXIETY / AGITATION 03/27/21 18:45 03/30/21 20:47 Diclofenac Sodium (Voltaren) 1 debbie QID TP 03/27/21 21:00 03/31/21 20:48 Furosemide (Lasix) 40 mg DAILY PO 03/28/21 09:00 03/31/21 09:05 Hydroxychloroquine Sulfate (Plaquenil) 200 mg DAILY PO 03/28/21 09:00 03/31/21 09:06 Levothyroxine Sodium (Synthroid) 100 mcg DAILY06 PO 03/28/21 06:00 03/31/21 05:45 Linezolid (Zyvox) 600 mg BID PO 03/27/21 21:00 03/29/21 10:25 DC 03/28/21 21:16 Nystatin (Mycostatin) 1 debbie PRN BID PRN TP RASH 03/27/21 18:45 Nystatin (Nystop) 1 debbie PRN BID PRN TP RASH 03/27/21 18:45 Prednisone (Prednisone) 4 mg DAILY PO 03/28/21 09:00 03/31/21 09:05 Acetaminophen (Tylenol) 1,000 mg PRN Q6HRS PRN PO MILD PAIN / TEMP > 100.3'F 03/27/21 19:15 03/28/21 08:42 Non-Formulary Medication (Etanercept (Enbrel)) 50 mg WEEKLY SQ 04/03/21 09:00 UNV Cetirizine HCl (ZyrTEC) 10 mg DAILY PO 03/28/21 09:00 03/31/21 09:05 Meclizine HCl (Antivert) 25 mg PRN TID PRN PO DIZZINESS 03/27/21 19:15 Mupirocin (Bactroban) 1 debbie PRN BID PRN TP SORES ON EXTREMITIES 03/27/21 19:15 Tetrahydrozoline HCl (Murine) 1 drop PRN TID PRN OU dry/itchy eyes 03/27/21 19:15 Oxybutynin Chloride (Ditropan) 5 mg BID PO 03/28/21 09:00 03/31/21 20:48 Polyethylene Glycol (miraLAX) 17 gm DAILY PO 03/28/21 09:00 03/31/21 09:04 Mirtazapine (Remeron) 7.5 mg QHS PO 03/28/21 21:00 03/31/21 20:48 Sertraline HCl (Zoloft) 25 mg DAILY PO 03/29/21 09:00 03/31/21 21:00 DC 03/31/21 09:05 Sertraline HCl (Zoloft) 50 mg DAILY PO 04/01/21 09:00 Risperidone (RisperDAL) 0.25 mg HS PO 03/28/21 21:00 03/31/21 20:48 Doxycycline Hyclate (Vibra-Tab) 100 mg BID PO 03/28/21 21:00 04/04/21 13:00 03/31/21 20:48 Trimethoprim/ Sulfamethoxazole (Bactrim Ds) 1 tab BID PO 03/28/21 21:00 04/04/21 13:00 03/31/21 20:48 Lactobacillus Rhamnosus (Culturelle) 1 cap BID PO 03/28/21 21:00 03/31/21 20:48 Divalproex Sodium (Depakote Sprinkles) 250 mg BID@0900,1700 PO 03/31/21 09:00 03/31/21 17:41 Trazodone HCl (Desyrel) 50 mg PRN QHS PRN PO INSOMNIA, MAY REPEAT X1 03/30/21 20:00 03/30/21 20:31 Current Medications Medications (Trade) Dose Ordered Sig/Yajaira Route PRN Reason Start Time Stop Time Status Last Admin Dose Admin Divalproex Sodium (Depakote Sprinkles) 250 mg BID@0900,1700 PO 03/31/21 09:00 03/31/21 17:41 I have reviewed the current psychotropics carefully including drug interactions. Risk benefit ratio favors no change other than as noted in my dictated progress note. Diagnosis: Problems: (1) Major depressive disorder with psychotic features (2) Impulse control disorder, unspecified (3) Mild cognitive impairment (4) Anxiety disorder, unspecified (5) Bipolar disorder, current episode mixed, severe, with psychotic features DAMIR BOWIE MD Mar 31, 2021 21:34
--- NOTE | 2021-03-31 23:58 | NUR ---
Pt laying in bed all evening. Pt pleasant when approached, stated she was "just relaxing." Compliant with whole mediations. Denied anxiety.
[2021-04-01] MEDS: LEVOTHYROXINE 100 MCG TABLET PO SCH (05:39)
[2021-04-01 06:07] VITALS: BP 99/56
[2021-04-01] MEDS: CETIRIZINE HCL 10 MG TABLET PO SCH (08:30)
[2021-04-01] MEDS: LACTOBACILLUS RHAMNOSUS GG 1 CAPSULE. PO SCH ×2 (08:30→20:31)
[2021-04-01] MEDS: OXYBUTYNIN CHLORIDE 5 MG TABLET PO SCH ×2 (08:30→20:31)
[2021-04-01] MEDS: SERTRALINE 50 MG TABLET. PO SCH (08:30)
[2021-04-01] MEDS: DIVALPROEX 125 MG CAP.SPRINK PO SCH ×2 (08:30→17:31)
[2021-04-01] MEDS: SMZ/TMP 800/160MG TABLET. PO SCH ×2 (08:30→20:31)
[2021-04-01] MEDS: DOXYCYCLINE HYCLATE 100 MG TABLET PO SCH ×2 (08:30→20:31)
[2021-04-01] MEDS: FUROSEMIDE 40 MG TABLET PO SCH (08:30)
[2021-04-01] MEDS: predniSONE 1 MG TABLET PO SCH (08:31)
[2021-04-01] MEDS: HYDROXYCHLOROQUINE 200 MG TABLET PO SCH (08:31)
[2021-04-01] MEDS: POLYETHYLENE GLYCOL 3350 17 GM PACKET. PO SCH (08:31)
[2021-04-01] MEDS: DICLOFENAC SODIUM 1% TOPICAL GEL 100GM TUBE. TP SCH ×4 (08:32→20:32)
--- NOTE | 2021-04-01 13:36 | NUR ---
PATIENT IS UP IN A CHAIR UPON ASSESSMENT, CALM AND COOPERATIVE, COMPLIANT WITH MEDICATIONS, PATIENT DENIED ANY ADVERSE THOUGHTS, STATED SHE SLEPT WELL LAST NIGHT, PATIENT REQUESTED TO SEE AND SPEAK WITH THE STAPLE LASTER, PATIENT WAS INFORMED THAT STAPLE LASTER WILL SEE HER THIS AFTERNOON, PATIENT VERBALIZED UNDERSTANDING, PATIENT IS PLEASANT AND POLITE, NO DISTURBING BEHAVIOR NOTED.
--- NOTE | 2021-04-01 15:14 | NUR ---
Met with Lynne per her request. Lynne is expressing desire to be discharged as she needs to get home to check her mail for sweep stake winnings. Informed Lynne that her medications were being adjusted for treatment of Bipolar disorder. Lynne accepted this. Lynne is social and reminisced of her pet dogs, sharing details about each one and how special they were to her. Provided Lynne with her word puzzles and markers per her request. She was resting in bed and reported this to help her shoulder discomfort. TOÑO updated Patsy, nurses at [facility], and faxed current notes/medication list/labs for review. Next concurrent review due with Clive on 04/02/21.
[2021-04-01 15:43] VITALS: BP 106/72
[2021-04-01] MEDS: risperiDONE 0.25 MG TABLET. PO SCH (20:31)
[2021-04-01] MEDS: MIRTAZAPINE 7.5 MG TABLET. PO SCH (20:31)
--- NOTE | 2021-04-01 22:49 | PDOC ---
Exam Note: Baljinder Note: Please also refer to the separate dictated note~for this date of service dictated separately.~Patient seen individually. Discussed the patient with Nursing staff reviewed the chart.~Reviewed interim history and current functioning. Reviewed vital signs,~Labs/ Radiology~and current medications noted below. Continue current treatment with the changes noted in the dictated addendum note Assessment: Vital Signs/I&O: Vital Signs Date Time Temp Pulse Resp B/P (MAP) Pulse Ox O2 Delivery O2 Flow Rate FiO2 04/01/21 15:43 97.6 92 18 106/72 (83) 97 03/30/21 15:42 Room Air I & O 03/31/21 03/31/21 04/01/21 15:00 23:00 07:00 Intake Total 360 ml 840 ml Balance 360 ml 840 ml Current Medications: Meds: Current Medications Medications (Trade) Dose Ordered Sig/Yajaira Route PRN Reason Start Time Stop Time Status Last Admin Dose Admin Multi-Ingredient Ointment (Analgesic Flowood) 1 debbie PRN QID PRN TP MUSCLE PAIN 03/27/21 16:00 Al Hydroxide/Mg Hydroxide (Mylanta Plus Xs) 15 ml PRN AFTMEALHC PRN PO DYSPEPSIA 03/27/21 16:00 Magnesium Hydroxide (Milk Of Magnesia) 2,400 mg PRN QHS PRN PO CONSTIPATION 03/27/21 16:00 Acetaminophen (Tylenol) 1,000 mg PRN Q8HRS PRN PO MILD PAIN / TEMP > 100.3'F 03/27/21 18:45 UNV Alprazolam (Xanax) 0.25 mg PRN Q4HRS PRN PO ANXIETY / AGITATION 03/27/21 18:45 03/30/21 20:47 Diclofenac Sodium (Voltaren) 1 debbie QID TP 03/27/21 21:00 04/01/21 20:32 Furosemide (Lasix) 40 mg DAILY PO 03/28/21 09:00 04/01/21 08:30 Hydroxychloroquine Sulfate (Plaquenil) 200 mg DAILY PO 03/28/21 09:00 04/01/21 08:31 Levothyroxine Sodium (Synthroid) 100 mcg DAILY06 PO 03/28/21 06:00 04/01/21 05:39 Linezolid (Zyvox) 600 mg BID PO 03/27/21 21:00 03/29/21 10:25 DC 03/28/21 21:16 Nystatin (Mycostatin) 1 debbie PRN BID PRN TP RASH 03/27/21 18:45 Nystatin (Nystop) 1 debbie PRN BID PRN TP RASH 03/27/21 18:45 Prednisone (Prednisone) 4 mg DAILY PO 03/28/21 09:00 04/01/21 08:31 Acetaminophen (Tylenol) 1,000 mg PRN Q6HRS PRN PO MILD PAIN / TEMP > 100.3'F 03/27/21 19:15 03/28/21 08:42 Non-Formulary Medication (Etanercept (Enbrel)) 50 mg WEEKLY SQ 04/03/21 09:00 04/01/21 13:05 DC Cetirizine HCl (ZyrTEC) 10 mg DAILY PO 03/28/21 09:00 04/01/21 08:30 Meclizine HCl (Antivert) 25 mg PRN TID PRN PO DIZZINESS 03/27/21 19:15 Mupirocin (Bactroban) 1 debbie PRN BID PRN TP SORES ON EXTREMITIES 03/27/21 19:15 Tetrahydrozoline HCl (Murine) 1 drop PRN TID PRN OU dry/itchy eyes 03/27/21 19:15 Oxybutynin Chloride (Ditropan) 5 mg BID PO 03/28/21 09:00 04/01/21 20:31 Polyethylene Glycol (miraLAX) 17 gm DAILY PO 03/28/21 09:00 04/01/21 08:31 Mirtazapine (Remeron) 7.5 mg QHS PO 03/28/21 21:00 04/01/21 20:31 Sertraline HCl (Zoloft) 25 mg DAILY PO 03/29/21 09:00 03/31/21 21:00 DC 03/31/21 09:05 Sertraline HCl (Zoloft) 50 mg DAILY PO 04/01/21 09:00 04/01/21 08:30 Risperidone (RisperDAL) 0.25 mg HS PO 03/28/21 21:00 04/01/21 20:31 Doxycycline Hyclate (Vibra-Tab) 100 mg BID PO 03/28/21 21:00 04/04/21 13:00 04/01/21 20:31 Trimethoprim/ Sulfamethoxazole (Bactrim Ds) 1 tab BID PO 03/28/21 21:00 04/04/21 13:00 04/01/21 20:31 Lactobacillus Rhamnosus (Culturelle) 1 cap BID PO 03/28/21 21:00 04/01/21 20:31 Divalproex Sodium (Depakote Sprinkles) 250 mg BID@0900,1700 PO 03/31/21 09:00 04/01/21 17:31 Trazodone HCl (Desyrel) 50 mg PRN QHS PRN PO INSOMNIA, MAY REPEAT X1 03/30/21 20:00 03/30/21 20:31 Current Medications Medications (Trade) Dose Ordered Sig/Yajaira Route PRN Reason Start Time Stop Time Status Last Admin Dose Admin Sertraline HCl (Zoloft) 50 mg DAILY PO 04/01/21 09:00 04/01/21 08:30 I have reviewed the current psychotropics carefully including drug interactions. Risk benefit ratio favors no change other than as noted in my dictated progress note. Diagnosis: Problems: (1) Major depressive disorder with psychotic features (2) Impulse control disorder, unspecified (3) Mild cognitive impairment (4) Anxiety disorder, unspecified (5) Bipolar disorder, current episode mixed, severe, with psychotic features DAMIR BOWIE MD Apr 01, 2021 22:49
--- NOTE | 2021-04-01 23:09 | NUR ---
Pt sitting in chair in the hallway with legs elevated. Both legs continue to be red, warm with right leg swelling greater than the left. Compliant with whole medications. Pt anxious this evening, stating that she needs to leave now. Pt stated that she "won a sweepstakes" and that she has "half of a million dollars waiting in a safety deposit box."
--- NOTE | 2021-04-01 23:54 | PN ---
DATE: 03/31/2021 PSYCHIATRIC PROGRESS NOTE This late entry 03/31/2021 covers elements not covered in my initial note . SUBJECTIVE: The patient slept 7-1/4 hours previous night. Discussed with MADAY Drummond. Overall, the patient remains confused, but cooperative, less paranoid. No CV, , pulmonary, eye, ENT system symptoms on review. Reliability poor. MENTAL STATUS EXAMINATION: Oriented to herself. Insight, judgment, recent and remote memory, attention, concentration, fund of knowledge poor consistent with her diagnosis. IMPRESSION: Unchanged from initial note. PLAN: No change from initial note. KIERRA DR: Gamaliel TID: [id number]
[2021-04-02] MEDS: traZODone 50 MG TABLET. PO PRN (00:45)
--- NOTE | 2021-04-02 00:52 | PN ---
DATE: 04/01/2021 PSYCHIATRIC PROGRESS NOTE This note covers elements not covered in my initial note of 04/01/2021. The patient discussed with MADAY Drummond. SUBJECTIVE: The patient slept 8 hours previous night. She has done better during the day today. Compliant with medications, but very anxious and obsessive this evening wanting to be discharged because she has "bills to pay" I processed this with her individually. REVIEW OF SYSTEMS: She was seated outside her room, ambulation impaired with walker. No CV, , pulmonary, eye, ENT system symptoms on review. MENTAL STATUS EXAMINATION: Reasonably oriented. Speech coherent, rapid at times. She has a typical body movements as she talks, quite anxious, restless. No suicidal or homicidal ideation. Attention span short. Language function intact. Labs reviewed. IMPRESSION: Bipolar 1 disorder, mixed with psychotic features versus manic with psychotic features. Rest unchanged. PLAN: Continue current psychotropics. Check CBC, CMP, valproic acid level on 04/03 and adjust to reach therapeutic level. Maintain Zoloft, Remeron along with Xanax p.r.n. Risperdal and trazodone unchanged. KIERRA DR: Gamaliel TID: [id number]
--- NOTE | 2021-04-02 01:54 | PN ---
DATE: 03/30/2021 PSYCHIATRIC PROGRESS NOTE This is a late entry of 03/30, covers elements not covered in my initial note of 03/30. SUBJECTIVE: Discussed with nursing staff, reviewed the chart. Discussed with MADAY Zavala. The patient slept just 1 hour previous night. The patient remains hyperverbal, grandiose, consistent with her bipolar diagnosis. She is talking about playing bingo and coloring. Met with her at some length in her room. REVIEW OF SYSTEMS: Ambulation impaired with assistance/walker. No CV, , pulmonary, eye system symptoms on review. MENTAL STATUS EXAMINATION: Oriented to herself, situation. Speech is rapid, coherent and quite circumstantial, talking about why she does not want to get back to the long-term, that she going to win millions of dollars, that the staff at the long-term is stealing from her. Abstraction fair. Computation impaired. Language function intact. Attention span short. Mood and affect quite grandiose. Labs reviewed. IMPRESSION: Bipolar 1 disorder, manic versus mixed; anxiety disorder, unspecified. PLAN: We will add trazodone 50 mg at bedtime p.r.n. insomnia, may repeat x 1 and given a bipolar diagnosis started her on Depakote Sprinkles 125 mg 9:00 a.m. and 5:00 p.m. Check CBC, CMP; valproic acid level in 3 days. Maintain Remeron along with Xanax p.r.n., Zoloft 50 mg a day, Risperdal 0.25 mg at bedtime. Adjust further as clinically indicated. VINNY/TARI/BERNICE DR: Gamaliel TID: [id number]
--- NOTE | 2021-04-02 02:35 | PN ---
DATE: 03/31/2021 PSYCHIATRIC PROGRESS NOTE This is a late entry of 03/31 that covers elements not covered in my initial note. I met with the patient on the evening of 03/31, discussed with MADAY Drummond. SUBJECTIVE: The patient slept 6-1/4 hours the previous night, which is quite an improvement with the addition of trazodone and Depakote from the day before. She was quite anxious in the evening, obsessed about her bowels, feels she is constipated. The nursing staff do not concur with this, and she has good bowel movements. She did receive Xanax at bedtime as well. Remains hyperverbal but less than before. REVIEW OF SYSTEMS: Ambulation impaired, less fixated on constipation; no CV, , pulmonary, eye system symptoms on review. MENTAL STATUS EXAMINATION: Reasonably oriented. Speech coherent, less pressured. Abstraction fair. Somewhat more tired during the day today. Intellect average. Insight still limited. Judgment intact to standard questioning. Attention span short. She is still somewhat grandiose, better than before. Labs were reviewed. DIAGNOSES: Bipolar 1 disorder, mixed versus manic; anxiety disorder, unspecified. Rest unchanged. PLAN: Continue current psychotropics mentioned in my initial note. Follow labs level on the Depakote, adjust to reach therapeutic level. VINNY/CINTHYA/CAROLINA DR: VINNY/dewey TID: [id number]
[2021-04-02] MEDS: LEVOTHYROXINE 100 MCG TABLET PO SCH (05:47)
[2021-04-02 05:50] VITALS: BP 123/59
[2021-04-02] MEDS: POLYETHYLENE GLYCOL 3350 17 GM PACKET. PO SCH (08:51)
[2021-04-02] MEDS: SMZ/TMP 800/160MG TABLET. PO SCH ×2 (08:52→20:59)
[2021-04-02] MEDS: LACTOBACILLUS RHAMNOSUS GG 1 CAPSULE. PO SCH ×2 (08:52→20:59)
[2021-04-02] MEDS: DIVALPROEX 125 MG CAP.SPRINK PO SCH ×2 (08:53→17:24)
[2021-04-02] MEDS: CETIRIZINE HCL 10 MG TABLET PO SCH (08:53)
[2021-04-02] MEDS: SERTRALINE 50 MG TABLET. PO SCH (08:53)
[2021-04-02] MEDS: FUROSEMIDE 40 MG TABLET PO SCH (08:53)
[2021-04-02] MEDS: OXYBUTYNIN CHLORIDE 5 MG TABLET PO SCH ×2 (08:53→20:58)
[2021-04-02] MEDS: DOXYCYCLINE HYCLATE 100 MG TABLET PO SCH ×2 (08:53→20:58)
[2021-04-02] MEDS: DICLOFENAC SODIUM 1% TOPICAL GEL 100GM TUBE. TP SCH ×4 (08:54→21:00)
[2021-04-02] MEDS: HYDROXYCHLOROQUINE 200 MG TABLET PO SCH (08:54)
[2021-04-02] MEDS: predniSONE 1 MG TABLET PO SCH (08:54)
--- NOTE | 2021-04-02 10:10 | NUR ---
Nursing note: Pt in hallway for breakfast at time of AM med pass and assessment. She was compliant with meds whole and cooperative with assessment. Pt reports pain in her knees and neck that is relieved with scheduled voltaren gel. Pt was frustrated that she did not sleep well last night "There's just too much on my mind." Pt also expressed frustration regarding her DPOA and how an update was provided to the pt's DPOA when pt does "not have a DPOA". Pt is currently sitting quietly in the saez. Will continue to monitor.
--- NOTE | 2021-04-02 15:15 | NUR ---
Concurrent review completed with Gregoria from [facility] [place]. Lynne is authorized thru 04/03/22 with next review due on 04/04/21, 10am. Call placed to FREDERICK Louis/cousin in law, to update. Missy will be involved in team meeting via phone on 04/03/20.
[2021-04-02 15:55] VITALS: BP 97/52
[2021-04-02] MEDS: risperiDONE 0.25 MG TABLET. PO SCH (20:59)
[2021-04-02] MEDS: ALPRAZolam 0.25 MG TABLET PO PRN (20:59)
[2021-04-02] MEDS: MIRTAZAPINE 15 MG TABLET PO SCH (20:59)
--- NOTE | 2021-04-02 21:55 | PDOC ---
Exam Note: Baljinder Note: Please also refer to the separate dictated note~for this date of service dictated separately.~Patient seen individually. Discussed the patient with Nursing staff reviewed the chart.~Reviewed interim history and current functioning. Reviewed vital signs,~Labs/ Radiology~and current medications noted below. Continue current treatment with the changes noted in the dictated addendum note Assessment: Vital Signs/I&O: Vital Signs Date Time Temp Pulse Resp B/P (MAP) Pulse Ox O2 Delivery O2 Flow Rate FiO2 04/02/21 15:55 98.0 86 16 97/52 (67) 92 03/30/21 15:42 Room Air I & O 04/01/21 04/01/21 04/02/21 15:00 23:00 07:00 Intake Total 840 ml 480 ml Balance 840 ml 480 ml Labs: Laboratory Tests Test 04/02/21 05:45 SARS-CoV-2 (PCR) Not detected (NOT DETECTD) Current Medications: Meds: Current Medications Medications (Trade) Dose Ordered Sig/Yajaira Route PRN Reason Start Time Stop Time Status Last Admin Dose Admin Mirtazapine (Remeron) 15 mg QHS PO 04/02/21 21:00 04/02/21 20:59 I have reviewed the current psychotropics carefully including drug interactions. Risk benefit ratio favors no change other than as noted in my dictated progress note. Diagnosis: Problems: (1) Bipolar disorder, mixed (2) Bipolar disorder, manic (3) Impulse control disorder, unspecified (4) Mild cognitive impairment (5) Anxiety disorder, unspecified DAMIR BOWIE MD Apr 02, 2021 21:55
[2021-04-03] MEDS: LEVOTHYROXINE 100 MCG TABLET PO SCH (05:34)
[2021-04-03 06:30] VITALS: BP 117/74
[2021-04-03 07:19] LABS: BASO # 0.1 x10^3/uL (0.0-0.2); BASO % 1 % (0-3); EOS # 0.1 x10^3/uL (0.0-0.7); EOS % 2 % (0-3); HEMATOCRIT 28.2 % (36.0-47.0); HEMOGLOBIN 9.1 g/dL (12.0-15.5); LYMPH # 4.4 x10^3/uL (1.0-4.8); LYMPH % 63 % (24-48); MEAN CORPUSCULAR HEMOGLOBIN 29 pg (25-35); MEAN CORPUSCULAR HGB CONC 32 g/dL (31-37); MEAN CORPUSCULAR VOLUME 90 fL (79-100); MONO # 0.9 x10^3/uL (0.0-1.1); MONO % 13 % (0-9); NEUT # 1.4 x10^3uL (1.8-7.7); NEUT % 20 % (31-73); PLATELET COUNT 209 x10^3/uL (140-400); RED BLOOD COUNT 3.14 x10^6/uL (3.50-5.40)
[2021-04-03 07:23] LABS: ALBUMIN 3.2 g/dL (3.4-5.0); ALBUMIN/GLOBULIN RATIO 0.8 (1.0-1.7); ALK PHOS 81 U/L (46-116); ALT (SGPT) 18 U/L (14-59); ANION GAP 9 (6-14); AST (SGOT) 15 U/L (15-37); BLOOD UREA NITROGEN 40 mg/dL (7-20); BUN/CREATININE RATIO 24 (6-20); CALCIUM 9.1 mg/dL (8.5-10.1); CARBON DIOXIDE 24 mmol/L (21-32); CHLORIDE 103 mmol/L (98-107); CREATININE 1.7 mg/dL (0.6-1.0); GFR 28.9; GLUCOSE 79 mg/dL (70-99); POTASSIUM 4.4 mmol/L (3.5-5.1); SODIUM 136 mmol/L (136-145); TOTAL BILIRUBIN 0.2 mg/dL (0.2-1.0)
[2021-04-03 07:31] LABS: VAL ACID 31 mcg/mL (50-100)
[2021-04-03] MEDS ORDERED: NON FORMULARY ITEM (Etanercept (Enbrel) 50 MG) SQ SCH (09:00)
[2021-04-03] MEDS: DICLOFENAC SODIUM 1% TOPICAL GEL 100GM TUBE. TP SCH ×4 (09:00→20:36)
[2021-04-03] MEDS: DOXYCYCLINE HYCLATE 100 MG TABLET PO SCH ×2 (09:13→20:35)
[2021-04-03] MEDS: CETIRIZINE HCL 10 MG TABLET PO SCH (09:13)
[2021-04-03] MEDS: LACTOBACILLUS RHAMNOSUS GG 1 CAPSULE. PO SCH ×2 (09:13→20:35)
[2021-04-03] MEDS: HYDROXYCHLOROQUINE 200 MG TABLET PO SCH (09:13)
[2021-04-03] MEDS: SERTRALINE 50 MG TABLET. PO SCH (09:13)
[2021-04-03] MEDS: OXYBUTYNIN CHLORIDE 5 MG TABLET PO SCH ×2 (09:13→20:35)
[2021-04-03] MEDS: DIVALPROEX 125 MG CAP.SPRINK PO SCH ×2 (09:13→17:00)
[2021-04-03] MEDS: POLYETHYLENE GLYCOL 3350 17 GM PACKET. PO SCH (09:13)
[2021-04-03] MEDS: SMZ/TMP 800/160MG TABLET. PO SCH ×2 (09:13→20:34)
[2021-04-03] MEDS: FUROSEMIDE 40 MG TABLET PO SCH (09:13)
[2021-04-03] MEDS: predniSONE 1 MG TABLET PO SCH (09:14)
--- NOTE | 2021-04-03 11:29 | TX PLAN ---
Interdisciplinary Tx Plan Admission Information Mar 27, 2021 at 15:10 Legal Status (on Admission): Voluntary, DPOA DPOA/Guardian Name: Missy Mckeon-cousin in law Contact Other Contact Name: Lynne-staff nurse Other Contact Verified Code Status: DNR Allergies: Coded Allergies: No Known Drug Allergies (Unverified , 03/27/21) Estimated Length of Stay: 14 Diagnoses Primary Diagnosis: MDD with psychotic features Reasons for Admission: Delusions, Relation/conflict, Agitated, Suspicious/paranoid, Confusion/Disoriented, Poor impulse control Problem in Patient's Words: Per Lynne, "I got in to an argument with Kg about this dementia." Additional Admission Comments: Per intake record, thinks staff are pushing her out of her chair, thinks she has won the [employer] sweepstakes, anxious, demanding to leave and live on her own, agitated, refusing meds related to paranoia, thinks others are stealing from her becoming irritable with reality orientation, calling 911 to report delusional thoughts to police. Problems Active Problems: Delusional Paranoid Anxious Refusing medications Calling 911 Agitated Inactive Problems: Adequate meal intake Pt Strengths/Limitations Ability for [place]: Poor Cognitive Functioning/Ability: Fair Communication Skills/Ability: Fair Financial Resources: Fair Insight/Judgement: Fair Intellectual Ability: Fair Physical Health: Fair Social Skills: Fair Stability in Family: Poor Verbal Skills: Fair Discharge Criteria Discharge Criteria: Adequate arrangements @DC, Verbal commit med comply, Improved behavior, Improved mood/thought Preliminary Discharge Plan Preliminary DC Plan: Assisted Living Other Arrangements: [facility] Special Precautions Special Precautions: Agitation/Assault Fall Risk: High Initial D/C Plan Will return to [facility] once stable Identified Discharge Needs: Follow up with PCP and arrange out patient mental health follow up services at [facility]. Currently Utilized Resources Currently Utilized Resources/P: PCP 24 hour oversight and assistance from [facility] Referrals Community Resources: Referral to [facility] for out patient mental health follow up Identified Problems/Hx/Goals Objectives/Short-Term Goals Short Term Goals: Dec. Hallucination/Delus, Medication Stabilization, Monitor Med Effects Short Term Goals in Patient's: Per Lynne, "Get the medicine straightened out." Interventions/Frequency Staff Interventions/Frequency&: Nursing to provide routine safety checks, medication administration, and adl support. Psychiatry to see three times weekly. SW to see twice weekly. 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 Social: Lynne enjoys coloring and doing word puzzles. Education: Lynne graduated from [employer]. She attended two years of college. Community Follow-up PCP Out patient mental health services thru [facility] Provider/Family Inpu: Initial Treatment team meeting was held on 03/28/21, big data solutions architect of this treatment plan was completed on 04/03/21. Treatment Plan Explained Patient/Poll Watcher had this treatment plan explained to him/her as indicated by the signature below and has been given the opportunity to ask questions and make suggestions: Date: Patient/Poll Watcher Signature: CEDRICK WHITING Apr 03, 2021 11:29
--- NOTE | 2021-04-03 11:36 | TX PLAN ---
Interdisciplinary Tx Plan Admission Information Mar 27, 2021 at 15:10 Legal Status (on Admission): Voluntary, DPOA DPOA/Guardian Name: Missy Mckeon-cousin in law Contact Other Contact Name: Lynne-staff nurse Other Contact Verified Code Status: DNR Allergies: Coded Allergies: No Known Drug Allergies (Unverified , 03/27/21) Estimated Length of Stay: 14 Diagnoses Primary Diagnosis: MDD with psychotic features Reasons for Admission: Delusions, Relation/conflict, Agitated, Suspicious/paranoid, Confusion/Disoriented, Poor impulse control Problem in Patient's Words: Per Lynne, "I got in to an argument with Kg about this dementia." Additional Admission Comments: Per intake record, thinks staff are pushing her out of her chair, thinks she has won the [employer] sweepstakes, anxious, demanding to leave and live on her own, agitated, refusing meds related to paranoia, thinks others are stealing from her becoming irritable with reality orientation, calling 911 to report delusional thoughts to police. Problems Active Problems: Delusional Paranoid Anxious Refusing medications Calling 911 Agitated Inactive Problems: Adequate meal intake Pt Strengths/Limitations Ability for [place]: Poor Cognitive Functioning/Ability: Fair Communication Skills/Ability: Fair Financial Resources: Fair Insight/Judgement: Fair Intellectual Ability: Fair Physical Health: Fair Social Skills: Fair Stability in Family: Poor Verbal Skills: Fair Discharge Criteria Discharge Criteria: Adequate arrangements @DC, Verbal commit med comply, Improved behavior, Improved mood/thought Preliminary Discharge Plan Preliminary DC Plan: Assisted Living Other Arrangements: [facility] Special Precautions Special Precautions: Agitation/Assault Fall Risk: High Initial D/C Plan Will return to [facility] once stable Identified Discharge Needs: Follow up with PCP and arrange out patient mental health follow up services at [facility]. Currently Utilized Resources Currently Utilized Resources/P: PCP 24 hour oversight and assistance from [facility] Referrals Community Resources: Referral to [facility] for out patient mental health follow up Identified Problems/Hx/Goals Objectives/Short-Term Goals Short Term Goals: Dec. Hallucination/Delus, Medication Stabilization, Monitor Med Effects Short Term Goals in Patient's: Per Lynne, "Get the medicine straightened out." Interventions/Frequency Staff Interventions/Frequency&: Nursing to provide routine safety checks, medication administration, and adl support. Psychiatry to see three times weekly. SW to see twice weekly. 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 Social: Lynne enjoys coloring and doing word puzzles. Education: Lynne graduated from [employer]. She attended two years of college. Community Follow-up PCP Out patient mental health services thru [facility] Provider/Family Inpu: Initial Treatment team meeting was held on 03/28/21, data entry supervisor of this treatment plan was completed on 04/03/21. Treatment Plan Explained Patient/Apns had this treatment plan explained to him/her as indicated by the signature below and has been given the opportunity to ask questions and make suggestions: Date: Patient/Apns Signature: Status Update Update WEEKLY UPDATE/NOTE: Lynne is averaging 70% of meal intakes and 5.5 hours of sleep at night. She is less grandiose and hyperverbal but remains delusional about winning the sweepstakes. Valproic acid level is at 31. Depakote will be increased to 250mg BID with repeat labs in three days. Lynne has been medication compliant. She has initiated calls to her POA. Lynne has busied herself with coloring pages and word puzzles in her room. She tends to tire easily and rests often. FREDERICK Louis, was involved in team meeting via phone this date. Next concurrent review with Clive is to be completed on 04/04/21. Tentative d/c request will be for 04/07/21 provided Depakote level is therapeutic. SW will update FREDERICK and [facility] after [employer] concurrent review on 04/04/21. CEDRICK WHITING Apr 03, 2021 11:36
--- NOTE | 2021-04-03 12:15 | NUR ---
WEEKLY ACTIVITY THERAPY NOTE Date of Admission: 03/27/21 Date of AT Assessment:03/28 Precipitating behaviors that initiated intake and admission:thinks staff are pushing her out of her chair, delusional- thinks she is going to win [employer] sweepstakes, anxious, demanding to leave and live on her own, agitated, refusing meds r/t paranoia, thinks people are stealing from her and becomes irritable with reality orientation, calling 911 from [facility] to report Goal aimed:increase relaxation and socialization skills Initial Goal:Pt will participate in at least three Activity Therapy sessions per week Weekly progress towards goal: did not achieve, 1/3 Group participation level: 1:1 Weekly highlights: coloring pages afternoon Behaviors observed: decline group offers, withdrawn Plan: no change to goal Beneficial adaptations: encouragement
--- NOTE | 2021-04-03 14:39 | NUR ---
TOÑO met with Lynne to socialize, support, and re-administer MMSE. Lynne moved to the groups side of the unit today. She was resting in bed, calm and without s/s of distress. Lynne scored 28/30 on MMSE, an improvement of three points. TOÑO updated Lynne about Depakote being increased to get to a therapeutic level for Bipolar treatment. Lynne was agreeable to this stating she had lost all relationships due to Bipolar. She does have one friend, Claus, who visits her [facility] at [facility]. Lynne expressed she missed Claus, coloring, going thru her mail, and watching current events on TV. TOÑO encouraged her to come to day room to be involved in group programming and Lynne expressed an interest to do so. TOÑO also requested recreational therapist to provide coloring pages and markers.
--- NOTE | 2021-04-03 16:05 | NUR ---
Nursing note: Pt has been drowsy and withdrawn to her room this shift. She is pleasant, med compliant and cooperative. Pt c/o pain in her knees and neck that is relieved by scheduled meds. She is currently resting quietly in bed. Will continue to monitor.
[2021-04-03 16:17] VITALS: BP 104/71
[2021-04-03] MEDS: risperiDONE 0.25 MG TABLET. PO SCH (20:34)
[2021-04-03] MEDS: MIRTAZAPINE 15 MG TABLET PO SCH (20:35)
--- NOTE | 2021-04-03 22:32 | PDOC ---
Exam Note: Baljinder Note: Please also refer to the separate dictated note~for this date of service dictated separately.~Patient seen individually. Discussed the patient with Nursing staff reviewed the chart.~Reviewed interim history and current functioning. Reviewed vital signs,~Labs/ Radiology~and current medications noted below. Continue current treatment with the changes noted in the dictated addendum note Assessment: Vital Signs/I&O: Vital Signs Date Time Temp Pulse Resp B/P (MAP) Pulse Ox O2 Delivery O2 Flow Rate FiO2 04/03/21 16:17 98.0 86 16 104/71 (82) 92 03/30/21 15:42 Room Air I & O 04/02/21 04/02/21 04/03/21 15:00 23:00 07:00 Intake Total 360 ml 440 ml Balance 360 ml 440 ml Labs: Laboratory Tests Test 04/03/21 06:39 White Blood Count 7.0 x10^3/uL (4.0-11.0) Red Blood Count 3.14 x10^6/uL (3.50-5.40) L Hemoglobin 9.1 g/dL (12.0-15.5) L Hematocrit 28.2 % (36.0-47.0) L Mean Corpuscular Volume 90 fL (79-100) Mean Corpuscular Hemoglobin 29 pg (25-35) Mean Corpuscular Hemoglobin Concent 32 g/dL (31-37) Red Cell Distribution Width 17.0 % (11.5-14.5) H Platelet Count 209 x10^3/uL (140-400) Neutrophils (%) (Auto) 20 % (31-73) L Lymphocytes (%) (Auto) 63 % (24-48) H Monocytes (%) (Auto) 13 % (0-9) H Eosinophils (%) (Auto) 2 % (0-3) Basophils (%) (Auto) 1 % (0-3) Neutrophils # (Auto) 1.4 x10^3uL (1.8-7.7) L Lymphocytes # (Auto) 4.4 x10^3/uL (1.0-4.8) Monocytes # (Auto) 0.9 x10^3/uL (0.0-1.1) Eosinophils # (Auto) 0.1 x10^3/uL (0.0-0.7) Basophils # (Auto) 0.1 x10^3/uL (0.0-0.2) Sodium Level 136 mmol/L (136-145) Potassium Level 4.4 mmol/L (3.5-5.1) Chloride Level 103 mmol/L (98-107) Carbon Dioxide Level 24 mmol/L (21-32) Anion Gap 9 (6-14) Blood Urea Nitrogen 40 mg/dL (7-20) H Creatinine 1.7 mg/dL (0.6-1.0) H Estimated GFR (Cockcroft-Gault) 28.9 BUN/Creatinine Ratio 24 (6-20) H Glucose Level 79 mg/dL (70-99) Calcium Level 9.1 mg/dL (8.5-10.1) Total Bilirubin 0.2 mg/dL (0.2-1.0) Aspartate Amino Transferase (AST) 15 U/L (15-37) Alanine Aminotransferase (ALT) 18 U/L (14-59) Alkaline Phosphatase 81 U/L (46-116) Total Protein 7.0 g/dL (6.4-8.2) Albumin 3.2 g/dL (3.4-5.0) L Albumin/Globulin Ratio 0.8 (1.0-1.7) L Valproic Acid Level 31 mcg/mL (50-100) L Valproic Acid Last Dose Date 04/02/21 Valproic Acid Last Dose Time 1700 Current Medications: Meds: Laboratory Tests Test 04/03/21 06:39 White Blood Count 7.0 x10^3/uL Red Blood Count 3.14 x10^6/uL Hemoglobin 9.1 g/dL Hematocrit 28.2 % Mean Corpuscular Volume 90 fL Mean Corpuscular Hemoglobin 29 pg Mean Corpuscular Hemoglobin Concent 32 g/dL Red Cell Distribution Width 17.0 % Platelet Count 209 x10^3/uL Neutrophils (%) (Auto) 20 % Lymphocytes (%) (Auto) 63 % Monocytes (%) (Auto) 13 % Eosinophils (%) (Auto) 2 % Basophils (%) (Auto) 1 % Neutrophils # (Auto) 1.4 x10^3uL Lymphocytes # (Auto) 4.4 x10^3/uL Monocytes # (Auto) 0.9 x10^3/uL Eosinophils # (Auto) 0.1 x10^3/uL Basophils # (Auto) 0.1 x10^3/uL Sodium Level 136 mmol/L Potassium Level 4.4 mmol/L Chloride Level 103 mmol/L Carbon Dioxide Level 24 mmol/L Anion Gap 9 Blood Urea Nitrogen 40 mg/dL Creatinine 1.7 mg/dL Estimated GFR (Cockcroft-Gault) 28.9 BUN/Creatinine Ratio 24 Glucose Level 79 mg/dL Calcium Level 9.1 mg/dL Total Bilirubin 0.2 mg/dL Aspartate Amino Transf (AST/SGOT) 15 U/L Alanine Aminotransferase (ALT/SGPT) 18 U/L Alkaline Phosphatase 81 U/L Total Protein 7.0 g/dL Albumin 3.2 g/dL Albumin/Globulin Ratio 0.8 Valproic Acid (Depakene) Level 31 mcg/mL Valproic Acid Last Dose Date 04/02/21 Valproic Acid Last Dose Time 1700 Current Medications Medications (Trade) Dose Ordered Sig/Yajaira Route PRN Reason Start Time Stop Time Status Last Admin Dose Admin Multi-Ingredient Ointment (Analgesic [place]) 1 debbie PRN QID PRN TP MUSCLE PAIN 03/27/21 16:00 Al Hydroxide/Mg Hydroxide (Mylanta Plus Xs) 15 ml PRN AFTMEALHC PRN PO DYSPEPSIA 03/27/21 16:00 Magnesium Hydroxide (Milk Of Magnesia) 2,400 mg PRN QHS PRN PO CONSTIPATION 03/27/21 16:00 Acetaminophen (Tylenol) 1,000 mg PRN Q8HRS PRN PO MILD PAIN / TEMP > 100.3'F 03/27/21 18:45 UNV Alprazolam (Xanax) 0.25 mg PRN Q4HRS PRN PO ANXIETY / AGITATION 03/27/21 18:45 04/02/21 20:59 Diclofenac Sodium (Voltaren) 1 debbie QID TP 03/27/21 21:00 04/03/21 20:36 Furosemide (Lasix) 40 mg DAILY PO 03/28/21 09:00 04/03/21 11:36 DC 04/03/21 09:13 Hydroxychloroquine Sulfate (Plaquenil) 200 mg DAILY PO 03/28/21 09:00 04/03/21 09:13 Levothyroxine Sodium (Synthroid) 100 mcg DAILY06 PO 03/28/21 06:00 04/03/21 05:34 Linezolid (Zyvox) 600 mg BID PO 03/27/21 21:00 03/29/21 10:25 DC 03/28/21 21:16 Nystatin (Mycostatin) 1 debbie PRN BID PRN TP RASH 03/27/21 18:45 Nystatin (Nystop) 1 debbie PRN BID PRN TP RASH 03/27/21 18:45 Prednisone (Prednisone) 4 mg DAILY PO 03/28/21 09:00 04/03/21 09:14 Acetaminophen (Tylenol) 1,000 mg PRN Q6HRS PRN PO MILD PAIN / TEMP > 100.3'F 03/27/21 19:15 03/28/21 08:42 Non-Formulary Medication (Etanercept (Enbrel)) 50 mg WEEKLY SQ 04/03/21 09:00 04/01/21 13:05 DC Cetirizine HCl (ZyrTEC) 10 mg DAILY PO 03/28/21 09:00 04/03/21 09:13 Meclizine HCl (Antivert) 25 mg PRN TID PRN PO DIZZINESS 03/27/21 19:15 Mupirocin (Bactroban) 1 debbie PRN BID PRN TP SORES ON EXTREMITIES 03/27/21 19:15 Tetrahydrozoline HCl (Murine) 1 drop PRN TID PRN OU dry/itchy eyes 03/27/21 19:15 Oxybutynin Chloride (Ditropan) 5 mg BID PO 03/28/21 09:00 04/03/21 20:35 Polyethylene Glycol (miraLAX) 17 gm DAILY PO 03/28/21 09:00 04/03/21 09:13 Mirtazapine (Remeron) 7.5 mg QHS PO 03/28/21 21:00 04/02/21 18:17 DC 04/01/21 20:31 Sertraline HCl (Zoloft) 25 mg DAILY PO 03/29/21 09:00 03/31/21 21:00 DC 03/31/21 09:05 Sertraline HCl (Zoloft) 50 mg DAILY PO 04/01/21 09:00 04/03/21 09:13 Risperidone (RisperDAL) 0.25 mg HS PO 03/28/21 21:00 04/03/21 20:34 Doxycycline Hyclate (Vibra-Tab) 100 mg BID PO 03/28/21 21:00 04/04/21 13:00 04/03/21 20:35 Trimethoprim/ Sulfamethoxazole (Bactrim Ds) 1 tab BID PO 03/28/21 21:00 04/04/21 13:00 04/03/21 20:34 Lactobacillus Rhamnosus (Culturelle) 1 cap BID PO 03/28/21 21:00 04/03/21 20:35 Divalproex Sodium (Depakote Sprinkles) 250 mg BID@0900,1700 PO 03/31/21 09:00 04/03/21 18:37 DC 04/03/21 17:00 Trazodone HCl (Desyrel) 50 mg PRN QHS PRN PO INSOMNIA, MAY REPEAT X1 03/30/21 20:00 04/02/21 00:45 Mirtazapine (Remeron) 15 mg QHS PO 04/02/21 21:00 04/03/21 20:35 Divalproex Sodium (Depakote Sprinkles) 375 mg BID@0900,1700 PO 04/04/21 09:00 I have reviewed the current psychotropics carefully including drug interactions. Risk benefit ratio favors no change other than as noted in my dictated progress note. Diagnosis: Problems: (1) Major depressive disorder with psychotic features (2) Impulse control disorder, unspecified (3) Mild cognitive impairment (4) Anxiety disorder, unspecified (5) Bipolar disorder, mixed (6) Bipolar disorder, manic DAMIR BOWIE MD Apr 03, 2021 22:32
--- NOTE | 2021-04-04 04:20 | NUR ---
Nursing Note The patient was located in her room for her assessment and medication pass. The patient was compliant with her medication and was pleasant during interactions with this nurse. The patient remained in bed for most of this shift. The patient is currently sleeping in her room.
[2021-04-04 06:06] VITALS: BP 101/65
[2021-04-04] MEDS: LEVOTHYROXINE 100 MCG TABLET PO SCH ×2 (06:08→06:09)
--- NOTE | 2021-04-04 08:40 | PDOC ---
Exam Note: Baljinder Note: This note is a late entry for 04/02/2021 covers elements not covered in my initial note. Subjective: The patient was seen individually in the evening of 04/02/2021 with Eliza NASSAR, discussed and reviewed the chart. The patient slept 2-3/4 hours previous night. She was quite anxious previous evening, delusional that she had won 1.5 million dollar in sweepstakes and needed to get home to get the money from her lockbox. She resents having Missy her friend as her DPOA and states she never authorised this. We will defer to social service staff. I met with her in her room. She was lying in bed, has typical mannerisms, some repetitive speech. Review of Systems: No CV, , pulmonary, eye, ENT system symptoms on review. Gait unsteady, in walker at other times. Mental Status Exam: The patient is oriented to herself and situation. Speech coherent, rapid at times. Facial mannerisms makes a little harder to understand. Abstraction fair. Computation impaired. Language function intact. Attention span short. Mood and affect is less grandiose. Laboratory Data: Reviewed. Impression: Bipolar 1 disorder mixed with psychotic features. Anxiety disorder unspecified. Impulse control disorder unspecified. Plan: Continue current psychotropics including Depakote for her bipolar disorder. Check labs level on Depakote 04/03. Adjust to reach therapeutic level. Rest unchanged for now. Assessment: Vital Signs/I&O: Vital Signs Date Time Temp Pulse Resp B/P (MAP) Pulse Ox O2 Delivery O2 Flow Rate FiO2 04/04/21 06:06 97.5 87 18 101/65 (77) 92 03/30/21 15:42 Room Air I & O 04/03/21 04/03/21 04/04/21 15:00 23:00 07:00 Intake Total 380 ml 480 ml Balance 380 ml 480 ml Current Medications: Meds: Current Medications Medications (Trade) Dose Ordered Sig/Yajaira Route PRN Reason Start Time Stop Time Status Last Admin Dose Admin Multi-Ingredient Ointment (Analgesic [place]) 1 debbie PRN QID PRN TP MUSCLE PAIN 03/27/21 16:00 Al Hydroxide/Mg Hydroxide (Mylanta Plus Xs) 15 ml PRN AFTMEALHC PRN PO DYSPEPSIA 03/27/21 16:00 Magnesium Hydroxide (Milk Of Magnesia) 2,400 mg PRN QHS PRN PO CONSTIPATION 03/27/21 16:00 Acetaminophen (Tylenol) 1,000 mg PRN Q8HRS PRN PO MILD PAIN / TEMP > 100.3'F 03/27/21 18:45 UNV Alprazolam (Xanax) 0.25 mg PRN Q4HRS PRN PO ANXIETY / AGITATION 03/27/21 18:45 04/02/21 20:59 Diclofenac Sodium (Voltaren) 1 debbie QID TP 03/27/21 21:00 04/03/21 20:36 Furosemide (Lasix) 40 mg DAILY PO 03/28/21 09:00 04/03/21 11:36 DC 04/03/21 09:13 Hydroxychloroquine Sulfate (Plaquenil) 200 mg DAILY PO 03/28/21 09:00 04/03/21 09:13 Levothyroxine Sodium (Synthroid) 100 mcg DAILY06 PO 03/28/21 06:00 04/04/21 06:09 Linezolid (Zyvox) 600 mg BID PO 03/27/21 21:00 03/29/21 10:25 DC 03/28/21 21:16 Nystatin (Mycostatin) 1 debbie PRN BID PRN TP RASH 03/27/21 18:45 Nystatin (Nystop) 1 debbie PRN BID PRN TP RASH 03/27/21 18:45 Prednisone (Prednisone) 4 mg DAILY PO 03/28/21 09:00 04/03/21 09:14 Acetaminophen (Tylenol) 1,000 mg PRN Q6HRS PRN PO MILD PAIN / TEMP > 100.3'F 03/27/21 19:15 03/28/21 08:42 Non-Formulary Medication (Etanercept (Enbrel)) 50 mg WEEKLY SQ 04/03/21 09:00 04/01/21 13:05 DC Cetirizine HCl (ZyrTEC) 10 mg DAILY PO 03/28/21 09:00 04/03/21 09:13 Meclizine HCl (Antivert) 25 mg PRN TID PRN PO DIZZINESS 03/27/21 19:15 Mupirocin (Bactroban) 1 debbie PRN BID PRN TP SORES ON EXTREMITIES 03/27/21 19:15 Tetrahydrozoline HCl (Murine) 1 drop PRN TID PRN OU dry/itchy eyes 03/27/21 19:15 Oxybutynin Chloride (Ditropan) 5 mg BID PO 03/28/21 09:00 04/03/21 20:35 Polyethylene Glycol (miraLAX) 17 gm DAILY PO 03/28/21 09:00 04/03/21 09:13 Mirtazapine (Remeron) 7.5 mg QHS PO 03/28/21 21:00 04/02/21 18:17 DC 04/01/21 20:31 Sertraline HCl (Zoloft) 25 mg DAILY PO 03/29/21 09:00 03/31/21 21:00 DC 03/31/21 09:05 Sertraline HCl (Zoloft) 50 mg DAILY PO 04/01/21 09:00 04/03/21 09:13 Risperidone (RisperDAL) 0.25 mg HS PO 03/28/21 21:00 04/03/21 20:34 Doxycycline Hyclate (Vibra-Tab) 100 mg BID PO 03/28/21 21:00 04/04/21 13:00 04/03/21 20:35 Trimethoprim/ Sulfamethoxazole (Bactrim Ds) 1 tab BID PO 03/28/21 21:00 04/04/21 13:00 04/03/21 20:34 Lactobacillus Rhamnosus (Culturelle) 1 cap BID PO 03/28/21 21:00 04/03/21 20:35 Divalproex Sodium (Depakote Sprinkles) 250 mg BID@0900,1700 PO 03/31/21 09:00 04/03/21 18:37 DC 04/03/21 17:00 Trazodone HCl (Desyrel) 50 mg PRN QHS PRN PO INSOMNIA, MAY REPEAT X1 03/30/21 20:00 04/02/21 00:45 Mirtazapine (Remeron) 15 mg QHS PO 04/02/21 21:00 04/03/21 20:35 Divalproex Sodium (Depakote Sprinkles) 375 mg BID@0900,1700 PO 04/04/21 09:00 I have reviewed the current psychotropics carefully including drug interactions. Risk benefit ratio favors no change other than as noted in my dictated progress note. Diagnosis: Problems: (1) Impulse control disorder, unspecified (2) Mild cognitive impairment (3) Anxiety disorder, unspecified (4) Bipolar disorder, current episode mixed, severe, with psychotic features DAMIR BOWIE MD Apr 04, 2021 08:40
[2021-04-04] MEDS: POLYETHYLENE GLYCOL 3350 17 GM PACKET. PO SCH (09:00)
[2021-04-04] MEDS: DICLOFENAC SODIUM 1% TOPICAL GEL 100GM TUBE. TP SCH ×4 (09:00→20:20)
[2021-04-04] MEDS: LACTOBACILLUS RHAMNOSUS GG 1 CAPSULE. PO SCH ×2 (09:00→20:19)
--- NOTE | 2021-04-04 10:11 | NUR ---
[employer] review completed with Kerri. Batista has been approved thru 04/06 with tentative d/c on 04/07/21 provided Depakote is therapeutic. Call placed to [facility] and spoke to Deon. Update provided and they are to get back with SW about transportation arrangements at time of d/c.
[2021-04-04] MEDS: SERTRALINE 50 MG TABLET. PO SCH (10:25)
[2021-04-04] MEDS: SMZ/TMP 800/160MG TABLET. PO SCH (10:25)
[2021-04-04] MEDS: CETIRIZINE HCL 10 MG TABLET PO SCH (10:25)
[2021-04-04] MEDS: OXYBUTYNIN CHLORIDE 5 MG TABLET PO SCH ×2 (10:25→20:19)
[2021-04-04] MEDS: DOXYCYCLINE HYCLATE 100 MG TABLET PO SCH (10:25)
[2021-04-04] MEDS: predniSONE 1 MG TABLET PO SCH (10:26)
[2021-04-04] MEDS: HYDROXYCHLOROQUINE 200 MG TABLET PO SCH (10:26)
[2021-04-04] MEDS: DIVALPROEX 125 MG CAP.SPRINK PO SCH ×3 (10:26→17:55)
--- NOTE | 2021-04-04 10:37 | NUR ---
Pt cooperative and appropriate this morning. She is A&Ox3, absent of SI/HI/VH/AH/delusions. She is compliant with whole medications. After breakfast she retired back to bed and appears to be resting comfortably. Plan of care continues, will pass to next shift.
--- NOTE | 2021-04-04 14:21 | NUR ---
[facility] Social Work Discharge Planning Form Patient Name LYNNE DAVIS Admit Date: 03/27/21 DISCHARGE PLAN Discharge Destination: [facility] Assessment: N/A Transportation: Discharge on 04/07/21, transportation TBD. Special Instructions/Notes: Upon return to [facility], arrange for follow up appointment with PCP/house physician within 7-14 days. Lynne has an appointment at [facility] on 04/09/21 at 9am with Ro Pope. DISCHARGE TO FACILITY Facility: [facility] Address: [address] [place] [id number] Contact Name: Sofía director employment Contact Name: lj Whitaker nurse PCP: Dr. Noble [phone], (fax) Psychiatrist: [facility] [phone], (fax)
[2021-04-04 15:55] VITALS: BP 115/61
[2021-04-04] MEDS: risperiDONE 0.25 MG TABLET. PO SCH (20:19)
[2021-04-04] MEDS: MIRTAZAPINE 15 MG TABLET PO SCH (20:19)
--- NOTE | 2021-04-04 21:46 | PDOC ---
Exam Note: Baljinder Note: Please also refer to the separate dictated note~for this date of service dictated separately.~Patient seen individually. Discussed the patient with Nursing staff reviewed the chart.~Reviewed interim history and current functioning. Reviewed vital signs,~Labs/ Radiology~and current medications noted below. Continue current treatment with the changes noted in the dictated addendum note Assessment: Vital Signs/I&O: Vital Signs Date Time Temp Pulse Resp B/P (MAP) Pulse Ox O2 Delivery O2 Flow Rate FiO2 04/04/21 15:55 98.7 98 18 115/61 (79) 97 03/30/21 15:42 Room Air I & O 04/03/21 04/03/21 04/04/21 15:00 23:00 07:00 Intake Total 380 ml 480 ml Balance 380 ml 480 ml Current Medications: Meds: Current Medications Medications (Trade) Dose Ordered Sig/Yajaira Route PRN Reason Start Time Stop Time Status Last Admin Dose Admin Multi-Ingredient Ointment (Analgesic [place]) 1 debbie PRN QID PRN TP MUSCLE PAIN 03/27/21 16:00 Al Hydroxide/Mg Hydroxide (Mylanta Plus Xs) 15 ml PRN AFTMEALHC PRN PO DYSPEPSIA 03/27/21 16:00 Magnesium Hydroxide (Milk Of Magnesia) 2,400 mg PRN QHS PRN PO CONSTIPATION 03/27/21 16:00 Acetaminophen (Tylenol) 1,000 mg PRN Q8HRS PRN PO MILD PAIN / TEMP > 100.3'F 03/27/21 18:45 UNV Alprazolam (Xanax) 0.25 mg PRN Q4HRS PRN PO ANXIETY / AGITATION 03/27/21 18:45 04/02/21 20:59 Diclofenac Sodium (Voltaren) 1 debbie QID TP 03/27/21 21:00 04/04/21 20:20 Furosemide (Lasix) 40 mg DAILY PO 03/28/21 09:00 04/03/21 11:36 DC 04/03/21 09:13 Hydroxychloroquine Sulfate (Plaquenil) 200 mg DAILY PO 03/28/21 09:00 04/04/21 10:26 Levothyroxine Sodium (Synthroid) 100 mcg DAILY06 PO 03/28/21 06:00 04/04/21 06:09 Linezolid (Zyvox) 600 mg BID PO 03/27/21 21:00 03/29/21 10:25 DC 03/28/21 21:16 Nystatin (Mycostatin) 1 debbie PRN BID PRN TP RASH 03/27/21 18:45 Nystatin (Nystop) 1 debbie PRN BID PRN TP RASH 03/27/21 18:45 Prednisone (Prednisone) 4 mg DAILY PO 03/28/21 09:00 04/04/21 10:26 Acetaminophen (Tylenol) 1,000 mg PRN Q6HRS PRN PO MILD PAIN / TEMP > 100.3'F 03/27/21 19:15 03/28/21 08:42 Non-Formulary Medication (Etanercept (Enbrel)) 50 mg WEEKLY SQ 04/03/21 09:00 04/01/21 13:05 DC Cetirizine HCl (ZyrTEC) 10 mg DAILY PO 03/28/21 09:00 04/04/21 10:25 Meclizine HCl (Antivert) 25 mg PRN TID PRN PO DIZZINESS 03/27/21 19:15 Mupirocin (Bactroban) 1 debbie PRN BID PRN TP SORES ON EXTREMITIES 03/27/21 19:15 Tetrahydrozoline HCl (Murine) 1 drop PRN TID PRN OU dry/itchy eyes 03/27/21 19:15 Oxybutynin Chloride (Ditropan) 5 mg BID PO 03/28/21 09:00 04/04/21 20:19 Polyethylene Glycol (miraLAX) 17 gm DAILY PO 03/28/21 09:00 04/04/21 09:00 Mirtazapine (Remeron) 7.5 mg QHS PO 03/28/21 21:00 04/02/21 18:17 DC 04/01/21 20:31 Sertraline HCl (Zoloft) 25 mg DAILY PO 03/29/21 09:00 03/31/21 21:00 DC 03/31/21 09:05 Sertraline HCl (Zoloft) 50 mg DAILY PO 04/01/21 09:00 04/04/21 10:25 Risperidone (RisperDAL) 0.25 mg HS PO 03/28/21 21:00 04/04/21 20:19 Doxycycline Hyclate (Vibra-Tab) 100 mg BID PO 03/28/21 21:00 04/04/21 13:00 DC 04/04/21 10:25 Trimethoprim/ Sulfamethoxazole (Bactrim Ds) 1 tab BID PO 03/28/21 21:00 04/04/21 13:00 DC 04/04/21 10:25 Lactobacillus Rhamnosus (Culturelle) 1 cap BID PO 03/28/21 21:00 04/04/21 20:19 Divalproex Sodium (Depakote Sprinkles) 250 mg BID@0900,1700 PO 03/31/21 09:00 04/03/21 18:37 DC 04/03/21 17:00 Trazodone HCl (Desyrel) 50 mg PRN QHS PRN PO INSOMNIA, MAY REPEAT X1 03/30/21 20:00 04/02/21 00:45 Mirtazapine (Remeron) 15 mg QHS PO 04/02/21 21:00 04/04/21 20:19 Divalproex Sodium (Depakote Sprinkles) 375 mg BID@0900,1700 PO 04/04/21 09:00 04/04/21 17:55 Current Medications Medications (Trade) Dose Ordered Sig/Yajaira Route PRN Reason Start Time Stop Time Status Last Admin Dose Admin Divalproex Sodium (Depakote Sprinkles) 375 mg BID@0900,1700 PO 04/04/21 09:00 04/04/21 17:55 I have reviewed the current psychotropics carefully including drug interactions. Risk benefit ratio favors no change other than as noted in my dictated progress note. Diagnosis: Problems: (1) Major depressive disorder with psychotic features (2) Impulse control disorder, unspecified (3) Mild cognitive impairment (4) Anxiety disorder, unspecified (5) Bipolar disorder, current episode mixed, severe, with psychotic features DAMIR BOWIE MD Apr 04, 2021 21:46
[2021-04-05] MEDS: ALPRAZolam 0.25 MG TABLET PO PRN ×2 (00:57→14:38)
--- NOTE | 2021-04-05 01:00 | NUR ---
KENAN Landrumx given. Pt awake in bed and unablr to fall back to sleep. She has been pleasant and cooperative tonight and taken meds whole. She is now talking about her sweepstakes winnings, getting a dog and how politicians take money from social security and replace it with worthless IOUs. Encouraged pt to try and sleep now.
[2021-04-05 06:03] VITALS: BP 113/67
[2021-04-05] MEDS: LACTOBACILLUS RHAMNOSUS GG 1 CAPSULE. PO SCH ×2 (08:56→20:32)
[2021-04-05] MEDS: DIVALPROEX 125 MG CAP.SPRINK PO SCH ×2 (08:56→17:00)
[2021-04-05] MEDS: POLYETHYLENE GLYCOL 3350 17 GM PACKET. PO SCH (08:56)
[2021-04-05] MEDS: SERTRALINE 50 MG TABLET. PO SCH (08:56)
[2021-04-05] MEDS: OXYBUTYNIN CHLORIDE 5 MG TABLET PO SCH ×2 (08:56→20:32)
[2021-04-05] MEDS: CETIRIZINE HCL 10 MG TABLET PO SCH (08:56)
[2021-04-05] MEDS: predniSONE 1 MG TABLET PO SCH (08:56)
[2021-04-05] MEDS: HYDROXYCHLOROQUINE 200 MG TABLET PO SCH (08:57)
[2021-04-05] MEDS: DICLOFENAC SODIUM 1% TOPICAL GEL 100GM TUBE. TP SCH ×4 (09:00→20:33)
[2021-04-05] MEDS: ACETAMINOPHEN 500 MG TABLET PO PRN (14:38)
[2021-04-05 15:18] VITALS: BP 107/55
--- NOTE | 2021-04-05 16:47 | NUR ---
Pt up in for meals. Was asking about going home today. Informed pt she was possibly going back to facility on Wednesday. Asked to use phone to talk with Claus who usually takes her shopping and other errands. Pt stated he would probably be the one to transport her home. Informed pt that SW would make the arrangements for her transportation. This afternoon, pt complained of R frontal rib pain. Requested Xanax and tylenol. Voltaren gel also applied. Has been compliant with meds and cares.
[2021-04-05] MEDS: risperiDONE 0.25 MG TABLET. PO SCH (20:32)
[2021-04-05] MEDS: MIRTAZAPINE 15 MG TABLET PO SCH (20:32)
--- NOTE | 2021-04-05 22:11 | PDOC ---
Exam Note: Baljinder Note: Please also refer to the separate dictated note~for this date of service dictated separately.~Patient seen individually. Discussed the patient with Nursing staff reviewed the chart.~Reviewed interim history and current functioning. Reviewed vital signs,~Labs/ Radiology~and current medications noted below. Continue current treatment with the changes noted in the dictated addendum note Assessment: Vital Signs/I&O: Vital Signs Date Time Temp Pulse Resp B/P (MAP) Pulse Ox O2 Delivery O2 Flow Rate FiO2 04/05/21 15:18 98.2 74 16 107/55 (72) 95 03/30/21 15:42 Room Air I & O 04/04/21 04/04/21 04/05/21 15:00 23:00 07:00 Intake Total 240 ml 340 ml Balance 240 ml 340 ml Current Medications: Meds: Current Medications Medications (Trade) Dose Ordered Sig/Yajaira Route PRN Reason Start Time Stop Time Status Last Admin Dose Admin Multi-Ingredient Ointment (Analgesic [place]) 1 debbie PRN QID PRN TP MUSCLE PAIN 03/27/21 16:00 Al Hydroxide/Mg Hydroxide (Mylanta Plus Xs) 15 ml PRN AFTMEALHC PRN PO DYSPEPSIA 03/27/21 16:00 Magnesium Hydroxide (Milk Of Magnesia) 2,400 mg PRN QHS PRN PO CONSTIPATION 03/27/21 16:00 Acetaminophen (Tylenol) 1,000 mg PRN Q8HRS PRN PO MILD PAIN / TEMP > 100.3'F 03/27/21 18:45 UNV Alprazolam (Xanax) 0.25 mg PRN Q4HRS PRN PO ANXIETY / AGITATION 03/27/21 18:45 04/05/21 14:38 Diclofenac Sodium (Voltaren) 1 debbie QID TP 03/27/21 21:00 04/05/21 20:33 Furosemide (Lasix) 40 mg DAILY PO 03/28/21 09:00 04/03/21 11:36 DC 04/03/21 09:13 Hydroxychloroquine Sulfate (Plaquenil) 200 mg DAILY PO 03/28/21 09:00 04/05/21 08:57 Levothyroxine Sodium (Synthroid) 100 mcg DAILY06 PO 03/28/21 06:00 04/04/21 06:09 Linezolid (Zyvox) 600 mg BID PO 03/27/21 21:00 03/29/21 10:25 DC 03/28/21 21:16 Nystatin (Mycostatin) 1 debbie PRN BID PRN TP RASH 03/27/21 18:45 Nystatin (Nystop) 1 debbie PRN BID PRN TP RASH 03/27/21 18:45 Prednisone (Prednisone) 4 mg DAILY PO 03/28/21 09:00 04/05/21 08:56 Acetaminophen (Tylenol) 1,000 mg PRN Q6HRS PRN PO MILD PAIN / TEMP > 100.3'F 03/27/21 19:15 04/05/21 14:38 Non-Formulary Medication (Etanercept (Enbrel)) 50 mg WEEKLY SQ 04/03/21 09:00 04/01/21 13:05 DC Cetirizine HCl (ZyrTEC) 10 mg DAILY PO 03/28/21 09:00 04/05/21 08:56 Meclizine HCl (Antivert) 25 mg PRN TID PRN PO DIZZINESS 03/27/21 19:15 Mupirocin (Bactroban) 1 debbie PRN BID PRN TP SORES ON EXTREMITIES 03/27/21 19:15 Tetrahydrozoline HCl (Murine) 1 drop PRN TID PRN OU dry/itchy eyes 03/27/21 19:15 Oxybutynin Chloride (Ditropan) 5 mg BID PO 03/28/21 09:00 04/05/21 20:32 Polyethylene Glycol (miraLAX) 17 gm DAILY PO 03/28/21 09:00 04/05/21 08:56 Mirtazapine (Remeron) 7.5 mg QHS PO 03/28/21 21:00 04/02/21 18:17 DC 04/01/21 20:31 Sertraline HCl (Zoloft) 25 mg DAILY PO 03/29/21 09:00 03/31/21 21:00 DC 03/31/21 09:05 Sertraline HCl (Zoloft) 50 mg DAILY PO 04/01/21 09:00 04/05/21 08:56 Risperidone (RisperDAL) 0.25 mg HS PO 03/28/21 21:00 04/05/21 20:32 Doxycycline Hyclate (Vibra-Tab) 100 mg BID PO 03/28/21 21:00 04/04/21 13:00 DC 04/04/21 10:25 Trimethoprim/ Sulfamethoxazole (Bactrim Ds) 1 tab BID PO 03/28/21 21:00 04/04/21 13:00 DC 04/04/21 10:25 Lactobacillus Rhamnosus (Culturelle) 1 cap BID PO 03/28/21 21:00 04/05/21 20:32 Divalproex Sodium (Depakote Sprinkles) 250 mg BID@0900,1700 PO 03/31/21 09:00 04/03/21 18:37 DC 04/03/21 17:00 Trazodone HCl (Desyrel) 50 mg PRN QHS PRN PO INSOMNIA, MAY REPEAT X1 03/30/21 20:00 04/02/21 00:45 Mirtazapine (Remeron) 15 mg QHS PO 04/02/21 21:00 04/05/21 20:32 Divalproex Sodium (Depakote Sprinkles) 375 mg BID@0900,1700 PO 04/04/21 09:00 04/05/21 17:00 I have reviewed the current psychotropics carefully including drug interactions. Risk benefit ratio favors no change other than as noted in my dictated progress note. Diagnosis: Problems: (1) Bipolar disorder, current episode mixed, severe, with psychotic features (2) Anxiety disorder, unspecified (3) Mild cognitive impairment (4) Impulse control disorder, unspecified (5) Major depressive disorder with psychotic features DAMIR BOWIE MD Apr 05, 2021 22:11
--- NOTE | 2021-04-05 23:55 | NUR ---
Pt located in her room lying in bed. Pt had multiple magazines, coloring pages, etc laying next to her in bed. Compliant with whole medications. Pleasant and interactive.
[2021-04-06] MEDS: LEVOTHYROXINE 100 MCG TABLET PO SCH (05:22)
[2021-04-06 05:52] VITALS: BP 121/71
[2021-04-06] MEDS: LACTOBACILLUS RHAMNOSUS GG 1 CAPSULE. PO SCH ×2 (07:46→21:35)
[2021-04-06] MEDS: OXYBUTYNIN CHLORIDE 5 MG TABLET PO SCH ×2 (07:46→21:35)
[2021-04-06] MEDS: CETIRIZINE HCL 10 MG TABLET PO SCH (07:46)
[2021-04-06] MEDS: SERTRALINE 50 MG TABLET. PO SCH (07:46)
[2021-04-06] MEDS: DIVALPROEX 125 MG CAP.SPRINK PO SCH ×2 (07:46→17:06)
[2021-04-06] MEDS: predniSONE 1 MG TABLET PO SCH (07:47)
[2021-04-06] MEDS: POLYETHYLENE GLYCOL 3350 17 GM PACKET. PO SCH (07:47)
[2021-04-06] MEDS: HYDROXYCHLOROQUINE 200 MG TABLET PO SCH (07:47)
[2021-04-06] MEDS: DICLOFENAC SODIUM 1% TOPICAL GEL 100GM TUBE. TP SCH ×4 (07:48→21:35)
--- NOTE | 2021-04-06 08:55 | PDOC ---
Exam Note: Baljinder Note: This note is a late entry for 04/03/2021 covers elements not covered in my initial note. Subjective: The patient was reviewed at treatment team meeting individually in the morning on 04/03/2021 with Doreen NASSAR, Rod Buster, Janae Mckeon, Yarelis Bradley, and Andie Solorio (elementary school social worker), Madhuri, activity therapy and Eliza NASSAR, discussed and reviewed the chart. The patient slept 6-3/4 hours previous night. Average sleep 5-1/2 hours. Patients DPOA attended the treatment team meeting. Appetite is 70%. Flu shot was received on 03/26. Patient continues to deny she has DPOA. She is somewhat drowsy. We will check labs for dehydration. Valproic acid level is subtherapeutic at 31 on 250 mg Depakote. We will increase to 375 mg b.i.d. Check CBC, CMP, valproic acid level in 3 days with a plan to get it therapeutic. We will also check ammonia level. She does have some cellulitis, was on antibiotics. Discussed with Dave NASSAR in the evening. Patient has been drowsy, somewhat withdrawn. Review of Systems: No CV, , pulmonary, eye, ENT system symptoms on review. Ambulation impaired. Mental Status Exam: The patient is oriented to herself and situation. Speech coherent, little pressured. Abstraction fair. Computation impaired. Language function intact. She is somewhat distractible. No suicidal or homicidal ideation. Laboratory Data: Reviewed. Impression: Bipolar 1 disorder manic in partial remission. Anxiety disorder unspecified. Impulse control disorder unspecified. Plan: Continue current psychotropics. Increase Depakote as above. Adjust as clinically indicated. Assessment: Vital Signs/I&O: Vital Signs Date Time Temp Pulse Resp B/P (MAP) Pulse Ox O2 Delivery O2 Flow Rate FiO2 04/06/21 05:52 98.1 82 18 121/71 (88) 95 I & O 04/05/21 04/05/21 04/06/21 15:00 23:00 07:00 Intake Total 600 ml 360 ml Balance 600 ml 360 ml Current Medications: Meds: Current Medications Medications (Trade) Dose Ordered Sig/Yajaira Route PRN Reason Start Time Stop Time Status Last Admin Dose Admin Multi-Ingredient Ointment (Analgesic [place]) 1 debbie PRN QID PRN TP MUSCLE PAIN 03/27/21 16:00 Al Hydroxide/Mg Hydroxide (Mylanta Plus Xs) 15 ml PRN AFTMEALHC PRN PO DYSPEPSIA 03/27/21 16:00 Magnesium Hydroxide (Milk Of Magnesia) 2,400 mg PRN QHS PRN PO CONSTIPATION 03/27/21 16:00 Acetaminophen (Tylenol) 1,000 mg PRN Q8HRS PRN PO MILD PAIN / TEMP > 100.3'F 03/27/21 18:45 UNV Alprazolam (Xanax) 0.25 mg PRN Q4HRS PRN PO ANXIETY / AGITATION 03/27/21 18:45 04/05/21 14:38 Diclofenac Sodium (Voltaren) 1 debbie QID TP 03/27/21 21:00 04/06/21 07:48 Furosemide (Lasix) 40 mg DAILY PO 03/28/21 09:00 04/03/21 11:36 DC 04/03/21 09:13 Hydroxychloroquine Sulfate (Plaquenil) 200 mg DAILY PO 03/28/21 09:00 04/06/21 07:47 Levothyroxine Sodium (Synthroid) 100 mcg DAILY06 PO 03/28/21 06:00 04/06/21 05:22 Linezolid (Zyvox) 600 mg BID PO 03/27/21 21:00 03/29/21 10:25 DC 03/28/21 21:16 Nystatin (Mycostatin) 1 debbie PRN BID PRN TP RASH 03/27/21 18:45 Nystatin (Nystop) 1 debbie PRN BID PRN TP RASH 03/27/21 18:45 Prednisone (Prednisone) 4 mg DAILY PO 03/28/21 09:00 04/06/21 07:47 Acetaminophen (Tylenol) 1,000 mg PRN Q6HRS PRN PO MILD PAIN / TEMP > 100.3'F 03/27/21 19:15 04/05/21 14:38 Non-Formulary Medication (Etanercept (Enbrel)) 50 mg WEEKLY SQ 04/03/21 09:00 04/01/21 13:05 DC Cetirizine HCl (ZyrTEC) 10 mg DAILY PO 03/28/21 09:00 04/06/21 07:46 Meclizine HCl (Antivert) 25 mg PRN TID PRN PO DIZZINESS 03/27/21 19:15 Mupirocin (Bactroban) 1 debbie PRN BID PRN TP SORES ON EXTREMITIES 03/27/21 19:15 Tetrahydrozoline HCl (Murine) 1 drop PRN TID PRN OU dry/itchy eyes 03/27/21 19:15 Oxybutynin Chloride (Ditropan) 5 mg BID PO 03/28/21 09:00 04/06/21 07:46 Polyethylene Glycol (miraLAX) 17 gm DAILY PO 03/28/21 09:00 04/06/21 07:47 Mirtazapine (Remeron) 7.5 mg QHS PO 03/28/21 21:00 04/02/21 18:17 DC 04/01/21 20:31 Sertraline HCl (Zoloft) 25 mg DAILY PO 03/29/21 09:00 03/31/21 21:00 DC 03/31/21 09:05 Sertraline HCl (Zoloft) 50 mg DAILY PO 04/01/21 09:00 04/06/21 07:46 Risperidone (RisperDAL) 0.25 mg HS PO 03/28/21 21:00 04/05/21 20:32 Doxycycline Hyclate (Vibra-Tab) 100 mg BID PO 03/28/21 21:00 04/04/21 13:00 DC 04/04/21 10:25 Trimethoprim/ Sulfamethoxazole (Bactrim Ds) 1 tab BID PO 03/28/21 21:00 04/04/21 13:00 DC 04/04/21 10:25 Lactobacillus Rhamnosus (Culturelle) 1 cap BID PO 03/28/21 21:00 04/06/21 07:46 Divalproex Sodium (Depakote Sprinkles) 250 mg BID@0900,1700 PO 03/31/21 09:00 04/03/21 18:37 DC 04/03/21 17:00 Trazodone HCl (Desyrel) 50 mg PRN QHS PRN PO INSOMNIA, MAY REPEAT X1 03/30/21 20:00 04/02/21 00:45 Mirtazapine (Remeron) 15 mg QHS PO 04/02/21 21:00 04/05/21 20:32 Divalproex Sodium (Depakote Sprinkles) 375 mg BID@0900,1700 PO 04/04/21 09:00 04/06/21 07:46 I have reviewed the current psychotropics carefully including drug interactions. Risk benefit ratio favors no change other than as noted in my dictated progress note. Diagnosis: Problems: (1) Bipolar I disorder, current or most recent episode manic, in partial remission (2) Bipolar disorder, manic (3) Anxiety disorder, unspecified (4) Impulse control disorder, unspecified DAMIR BOWIE MD Apr 06, 2021 08:55
--- NOTE | 2021-04-06 09:08 | PDOC ---
Exam Note: Baljinder Note: This note is a late entry for 04/04/2021 covers elements not covered in my initial note. Subjective: The patient was seen individually in the evening of 04/04/2021 with Jordan NASSAR, discussed and reviewed the chart. The patient slept 8-1/2 hours previous night. Overall the patient is doing better with improved mood lability, less paranoid. Review of Systems: No CV, , pulmonary, eye, ENT system symptoms on review. Ambulation impaired with walker. Reliability varies. Mental Status Exam: The patient is oriented to herself and situation. Speech coherent, less pressured. Abstraction fair. Computation impaired. Language function intact. Mood and affect lability and grandiosity is improved. Laboratory Data: Reviewed. Impression: Bipolar 1 disorder manic in partial remission. Anxiety disorder unspecified. Impulse control disorder unspecified. Plan: Continue current psychotropics unchanged. Assessment: Vital Signs/I&O: Vital Signs Date Time Temp Pulse Resp B/P (MAP) Pulse Ox O2 Delivery O2 Flow Rate FiO2 04/06/21 05:52 98.1 82 18 121/71 (88) 95 I & O 04/05/21 04/05/21 04/06/21 14:59 22:59 06:59 Intake Total 600 ml 360 ml Balance 600 ml 360 ml Current Medications: Meds: Current Medications Medications (Trade) Dose Ordered Sig/Yajaira Route PRN Reason Start Time Stop Time Status Last Admin Dose Admin Multi-Ingredient Ointment (Analgesic [place]) 1 debbie PRN QID PRN TP MUSCLE PAIN 03/27/21 16:00 Al Hydroxide/Mg Hydroxide (Mylanta Plus Xs) 15 ml PRN AFTMEALHC PRN PO DYSPEPSIA 03/27/21 16:00 Magnesium Hydroxide (Milk Of Magnesia) 2,400 mg PRN QHS PRN PO CONSTIPATION 03/27/21 16:00 Acetaminophen (Tylenol) 1,000 mg PRN Q8HRS PRN PO MILD PAIN / TEMP > 100.3'F 03/27/21 18:45 UNV Alprazolam (Xanax) 0.25 mg PRN Q4HRS PRN PO ANXIETY / AGITATION 03/27/21 18:45 04/05/21 14:38 Diclofenac Sodium (Voltaren) 1 debbie QID TP 03/27/21 21:00 04/06/21 07:48 Furosemide (Lasix) 40 mg DAILY PO 03/28/21 09:00 04/03/21 11:36 DC 04/03/21 09:13 Hydroxychloroquine Sulfate (Plaquenil) 200 mg DAILY PO 03/28/21 09:00 04/06/21 07:47 Levothyroxine Sodium (Synthroid) 100 mcg DAILY06 PO 03/28/21 06:00 04/06/21 05:22 Linezolid (Zyvox) 600 mg BID PO 03/27/21 21:00 03/29/21 10:25 DC 03/28/21 21:16 Nystatin (Mycostatin) 1 debbie PRN BID PRN TP RASH 03/27/21 18:45 Nystatin (Nystop) 1 debbie PRN BID PRN TP RASH 03/27/21 18:45 Prednisone (Prednisone) 4 mg DAILY PO 03/28/21 09:00 04/06/21 07:47 Acetaminophen (Tylenol) 1,000 mg PRN Q6HRS PRN PO MILD PAIN / TEMP > 100.3'F 03/27/21 19:15 04/05/21 14:38 Non-Formulary Medication (Etanercept (Enbrel)) 50 mg WEEKLY SQ 04/03/21 09:00 04/01/21 13:05 DC Cetirizine HCl (ZyrTEC) 10 mg DAILY PO 03/28/21 09:00 04/06/21 07:46 Meclizine HCl (Antivert) 25 mg PRN TID PRN PO DIZZINESS 03/27/21 19:15 Mupirocin (Bactroban) 1 debbie PRN BID PRN TP SORES ON EXTREMITIES 03/27/21 19:15 Tetrahydrozoline HCl (Murine) 1 drop PRN TID PRN OU dry/itchy eyes 03/27/21 19:15 Oxybutynin Chloride (Ditropan) 5 mg BID PO 03/28/21 09:00 04/06/21 07:46 Polyethylene Glycol (miraLAX) 17 gm DAILY PO 03/28/21 09:00 04/06/21 07:47 Mirtazapine (Remeron) 7.5 mg QHS PO 03/28/21 21:00 04/02/21 18:17 DC 04/01/21 20:31 Sertraline HCl (Zoloft) 25 mg DAILY PO 03/29/21 09:00 03/31/21 21:00 DC 03/31/21 09:05 Sertraline HCl (Zoloft) 50 mg DAILY PO 04/01/21 09:00 04/06/21 07:46 Risperidone (RisperDAL) 0.25 mg HS PO 03/28/21 21:00 04/05/21 20:32 Doxycycline Hyclate (Vibra-Tab) 100 mg BID PO 03/28/21 21:00 04/04/21 13:00 DC 04/04/21 10:25 Trimethoprim/ Sulfamethoxazole (Bactrim Ds) 1 tab BID PO 03/28/21 21:00 04/04/21 13:00 DC 04/04/21 10:25 Lactobacillus Rhamnosus (Culturelle) 1 cap BID PO 03/28/21 21:00 04/06/21 07:46 Divalproex Sodium (Depakote Sprinkles) 250 mg BID@0900,1700 PO 03/31/21 09:00 04/03/21 18:37 DC 04/03/21 17:00 Trazodone HCl (Desyrel) 50 mg PRN QHS PRN PO INSOMNIA, MAY REPEAT X1 03/30/21 20:00 04/02/21 00:45 Mirtazapine (Remeron) 15 mg QHS PO 04/02/21 21:00 04/05/21 20:32 Divalproex Sodium (Depakote Sprinkles) 375 mg BID@0900,1700 PO 04/04/21 09:00 04/06/21 07:46 I have reviewed the current psychotropics carefully including drug interactions. Risk benefit ratio favors no change other than as noted in my dictated progress note. Diagnosis: Problems: (1) Impulse control disorder, unspecified (2) Anxiety disorder, unspecified (3) Bipolar I disorder, current or most recent episode manic, in partial remission DAMIR BOWIE MD Apr 06, 2021 09:08
--- NOTE | 2021-04-06 11:58 | NUR ---
NURSING NOTE PT WAS IN BED THIS AM UPON ASSESSMENT AND MEDICATION ADMINISTRATION. PT WAS SLEEPING AND WITHDRAWN TO ROOM MOST OF THE MORNING. TOOK HER MEDS WHOLE WITH NO COMPLICATIONS. PT HAS BLE SWELLING AND REDNESS WITH INCREASE SWELLING ON HER RIGHT LATERAL CALF. PT C/O PAIN IN HER SHOULDER, NECK, AND BILATERAL KNEES, VOLTAREN GEL APPLIED. PT NEEDS ENCOURAGED TO GET UP OUT OF BED FOR MEALS AND STRETCH BREAKS. MADAY HIRSCH.
--- NOTE | 2021-04-06 15:35 | NUR ---
assumed care of patient at 1400. Patient resting in bed at this time.
[2021-04-06 15:58] VITALS: BP 111/70
[2021-04-06] MEDS: MIRTAZAPINE 15 MG TABLET PO SCH (21:35)
[2021-04-06] MEDS: risperiDONE 0.25 MG TABLET. PO SCH (21:35)
--- NOTE | 2021-04-06 21:58 | PDOC ---
Exam Note: Baljinder Note: Please also refer to the separate dictated note~for this date of service dictated separately.~Patient seen individually. Discussed the patient with Nursing staff reviewed the chart.~Reviewed interim history and current functioning. Reviewed vital signs,~Labs/ Radiology~and current medications noted below. Continue current treatment with the changes noted in the dictated addendum note Assessment: Vital Signs/I&O: Vital Signs Date Time Temp Pulse Resp B/P (MAP) Pulse Ox O2 Delivery O2 Flow Rate FiO2 04/06/21 15:58 98.5 92 18 111/70 (84) 96 I & O 04/05/21 04/05/21 04/06/21 15:00 23:00 07:00 Intake Total 600 ml 360 ml Balance 600 ml 360 ml Current Medications: Meds: Current Medications Medications (Trade) Dose Ordered Sig/Yajaira Route PRN Reason Start Time Stop Time Status Last Admin Dose Admin Multi-Ingredient Ointment (Analgesic [place]) 1 debbie PRN QID PRN TP MUSCLE PAIN 03/27/21 16:00 Al Hydroxide/Mg Hydroxide (Mylanta Plus Xs) 15 ml PRN AFTMEALHC PRN PO DYSPEPSIA 03/27/21 16:00 Magnesium Hydroxide (Milk Of Magnesia) 2,400 mg PRN QHS PRN PO CONSTIPATION 03/27/21 16:00 Acetaminophen (Tylenol) 1,000 mg PRN Q8HRS PRN PO MILD PAIN / TEMP > 100.3'F 03/27/21 18:45 UNV Alprazolam (Xanax) 0.25 mg PRN Q4HRS PRN PO ANXIETY / AGITATION 03/27/21 18:45 04/05/21 14:38 Diclofenac Sodium (Voltaren) 1 debbie QID TP 03/27/21 21:00 04/06/21 21:35 Furosemide (Lasix) 40 mg DAILY PO 03/28/21 09:00 04/03/21 11:36 DC 04/03/21 09:13 Hydroxychloroquine Sulfate (Plaquenil) 200 mg DAILY PO 03/28/21 09:00 04/06/21 07:47 Levothyroxine Sodium (Synthroid) 100 mcg DAILY06 PO 03/28/21 06:00 04/06/21 05:22 Linezolid (Zyvox) 600 mg BID PO 03/27/21 21:00 03/29/21 10:25 DC 03/28/21 21:16 Nystatin (Mycostatin) 1 debbie PRN BID PRN TP RASH 03/27/21 18:45 Nystatin (Nystop) 1 debbie PRN BID PRN TP RASH 03/27/21 18:45 Prednisone (Prednisone) 4 mg DAILY PO 03/28/21 09:00 04/06/21 07:47 Acetaminophen (Tylenol) 1,000 mg PRN Q6HRS PRN PO MILD PAIN / TEMP > 100.3'F 03/27/21 19:15 04/05/21 14:38 Non-Formulary Medication (Etanercept (Enbrel)) 50 mg WEEKLY SQ 04/03/21 09:00 04/01/21 13:05 DC Cetirizine HCl (ZyrTEC) 10 mg DAILY PO 03/28/21 09:00 04/06/21 07:46 Meclizine HCl (Antivert) 25 mg PRN TID PRN PO DIZZINESS 03/27/21 19:15 Mupirocin (Bactroban) 1 debbie PRN BID PRN TP SORES ON EXTREMITIES 03/27/21 19:15 Tetrahydrozoline HCl (Murine) 1 drop PRN TID PRN OU dry/itchy eyes 03/27/21 19:15 Oxybutynin Chloride (Ditropan) 5 mg BID PO 03/28/21 09:00 04/06/21 21:35 Polyethylene Glycol (miraLAX) 17 gm DAILY PO 03/28/21 09:00 04/06/21 07:47 Mirtazapine (Remeron) 7.5 mg QHS PO 03/28/21 21:00 04/02/21 18:17 DC 04/01/21 20:31 Sertraline HCl (Zoloft) 25 mg DAILY PO 03/29/21 09:00 03/31/21 21:00 DC 03/31/21 09:05 Sertraline HCl (Zoloft) 50 mg DAILY PO 04/01/21 09:00 04/06/21 07:46 Risperidone (RisperDAL) 0.25 mg HS PO 03/28/21 21:00 04/06/21 21:35 Doxycycline Hyclate (Vibra-Tab) 100 mg BID PO 03/28/21 21:00 04/04/21 13:00 DC 04/04/21 10:25 Trimethoprim/ Sulfamethoxazole (Bactrim Ds) 1 tab BID PO 03/28/21 21:00 04/04/21 13:00 DC 04/04/21 10:25 Lactobacillus Rhamnosus (Culturelle) 1 cap BID PO 03/28/21 21:00 04/06/21 21:35 Divalproex Sodium (Depakote Sprinkles) 250 mg BID@0900,1700 PO 03/31/21 09:00 04/03/21 18:37 DC 04/03/21 17:00 Trazodone HCl (Desyrel) 50 mg PRN QHS PRN PO INSOMNIA, MAY REPEAT X1 03/30/21 20:00 04/02/21 00:45 Mirtazapine (Remeron) 15 mg QHS PO 04/02/21 21:00 04/06/21 21:35 Divalproex Sodium (Depakote Sprinkles) 375 mg BID@0900,1700 PO 04/04/21 09:00 04/06/21 17:06 I have reviewed the current psychotropics carefully including drug interactions. Risk benefit ratio favors no change other than as noted in my dictated progress note. 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
--- NOTE | 2021-04-06 22:12 | NUR ---
Patient calm and pleasant this afternoon and also tonight. She walked to dinner and back with her walker and has been awake and interactive with others. Patient continues to have a swollen area on her Right lateral olivares, Dr Vo is aware and diagnosed it as a staph infection. Patient cooperative and compliant with medications. She has labs scheduled for the morning and is scheduled to discharge tomorrow. Patient had no delusions, agitation or adverse behaviors this shift.
[2021-04-07] MEDS ORDERED: DIVA125C2 PO (00:58)
[2021-04-07] MEDS ORDERED: MAGN24003 PO (01:03)
[2021-04-07] MEDS ORDERED: MIRT-37 PO (01:03)
[2021-04-07] MEDS ORDERED: MAG30ORA2 PO (01:04)
[2021-04-07] MEDS ORDERED: METH114C3 TP (01:07)
[2021-04-07] MEDS ORDERED: SERT50TA PO (01:10)
[2021-04-07] MEDS ORDERED: RISP0.5T62 PO (01:14)
[2021-04-07] MEDS ORDERED: TRAZ-120 PO (01:14)
[2021-04-07] MEDS: LEVOTHYROXINE 100 MCG TABLET PO SCH (05:21)
[2021-04-07 05:55] VITALS: BP 116/63
[2021-04-07 06:27] LABS: ALBUMIN 3.2 g/dL (3.4-5.0); ALBUMIN/GLOBULIN RATIO 0.7 (1.0-1.7); CALCIUM 9.2 mg/dL (8.5-10.1); CREATININE 1.3 mg/dL (0.6-1.0); GFR 39.4; POTASSIUM 4.9 mmol/L (3.5-5.1); TOTAL BILIRUBIN 0.2 mg/dL (0.2-1.0); TOTAL PROTEIN 7.5 g/dL (6.4-8.2)
[2021-04-07 06:58] LABS: VAL ACID 59 mcg/mL (50-100)
[2021-04-07 07:16] LABS: BASO # 0.1 x10^3/uL (0.0-0.2); BASO % 1 % (0-3); EOS # 0.1 x10^3/uL (0.0-0.7); EOS % 2 % (0-3); HEMATOCRIT 33.1 % (36.0-47.0); HEMOGLOBIN 10.7 g/dL (12.0-15.5); LYMPH # 4.4 x10^3/uL (1.0-4.8); LYMPH % 61 % (24-48); MEAN CORPUSCULAR HEMOGLOBIN 29 pg (25-35); MEAN CORPUSCULAR HGB CONC 32 g/dL (31-37); MEAN CORPUSCULAR VOLUME 90 fL (79-100); MONO % 13 % (0-9); NEUT # 1.7 x10^3uL (1.8-7.7); NEUT % 23 % (31-73); PLATELET COUNT 186 x10^3/uL (140-400); RED BLOOD COUNT 3.68 x10^6/uL (3.50-5.40); RED CELL DISTRIBUTION WIDTH 17.8 % (11.5-14.5); WHITE BLOOD COUNT 7.3 x10^3/uL (4.0-11.0)
[2021-04-07] MEDS: predniSONE 1 MG TABLET PO SCH (08:32)
[2021-04-07] MEDS: DIVALPROEX 125 MG CAP.SPRINK PO SCH (08:33)
[2021-04-07] MEDS: LACTOBACILLUS RHAMNOSUS GG 1 CAPSULE. PO SCH (08:33)
[2021-04-07] MEDS: POLYETHYLENE GLYCOL 3350 17 GM PACKET. PO SCH (08:33)
[2021-04-07] MEDS: CETIRIZINE HCL 10 MG TABLET PO SCH (08:33)
[2021-04-07] MEDS: OXYBUTYNIN CHLORIDE 5 MG TABLET PO SCH (08:33)
[2021-04-07] MEDS: SERTRALINE 50 MG TABLET. PO SCH (08:33)
[2021-04-07] MEDS: HYDROXYCHLOROQUINE 200 MG TABLET PO SCH (08:33)
[2021-04-07] MEDS: DICLOFENAC SODIUM 1% TOPICAL GEL 100GM TUBE. TP SCH ×2 (08:36→12:43)
--- NOTE | 2021-04-07 09:53 | NUR ---
Lynne is stable for d/c. Call placed to [place] case investigator, Sulma Kang at [phone], who provided [facility] phone number of [phone]. Call placed to Yarelis at [facility] and transport arranged for 2pm this afternoon. Reviewed with Lynne who is excited to return to [facility]. Notified Sofía, magnetic resonance imaging coordinator at [facility], of transport arrangements. TOÑO left message for FREDERICK Shearer, to inform of above. Addendum: 04/07/21 at 0959 by [place] [id number].
[2021-04-07 16:11] VITALS: BP 102/69
--- NOTE | 2021-04-07 17:26 | NUR ---
Transition Record was faxed to follow-up provider with the following elements: Reason for admission, procedures, tests, principal diagnosis, pending studies, patient instructions, 04/01 contact information for unit, phone number to obtain pending test results, plan for follow-up care, physician follow-up, advanced directive information, and medication list with dose, duration and instructions. This information was included in the following documents: History and physical, lab results, study results, progress notes, social work planning form, DC instruction form, patient visit summary, and medication reconciliation form. Date & time record faxed: 04/07/21 at 1253 Record faxed to: [facility] at fax [phone] Record discussed with/ report given to Sofía OSORIO at 4510. Pt discharged at 1640 via w/c accomp by transport personnel
--- NOTE | 2021-04-07 21:58 | PDOC ---
Exam Note: Baljinder Note: Please also refer to the separate dictated note~for this date of service dictated separately.~Patient seen individually. Discussed the patient with Nursing staff reviewed the chart.~Reviewed interim history and current functioning. Reviewed vital signs,~Labs/ Radiology~and current medications noted below. Continue current treatment with the changes noted in the dictated addendum note Assessment: Vital Signs/I&O: Vital Signs Date Time Temp Pulse Resp B/P (MAP) Pulse Ox O2 Delivery O2 Flow Rate FiO2 04/07/21 16:11 98.6 94 20 102/69 (80) 94 I & O 04/06/21 04/06/21 04/07/21 15:00 23:00 07:00 Intake Total 720 ml 360 ml Balance 720 ml 360 ml Labs: Laboratory Tests Test 04/07/21 06:00 White Blood Count 7.3 x10^3/uL (4.0-11.0) Red Blood Count 3.68 x10^6/uL (3.50-5.40) Hemoglobin 10.7 g/dL (12.0-15.5) L Hematocrit 33.1 % (36.0-47.0) L Mean Corpuscular Volume 90 fL (79-100) Mean Corpuscular Hemoglobin 29 pg (25-35) Mean Corpuscular Hemoglobin Concent 32 g/dL (31-37) Red Cell Distribution Width 17.8 % (11.5-14.5) H Platelet Count 186 x10^3/uL (140-400) Neutrophils (%) (Auto) 23 % (31-73) L Lymphocytes (%) (Auto) 61 % (24-48) H Monocytes (%) (Auto) 13 % (0-9) H Eosinophils (%) (Auto) 2 % (0-3) Basophils (%) (Auto) 1 % (0-3) Neutrophils # (Auto) 1.7 x10^3uL (1.8-7.7) L Lymphocytes # (Auto) 4.4 x10^3/uL (1.0-4.8) Monocytes # (Auto) 1.0 x10^3/uL (0.0-1.1) Eosinophils # (Auto) 0.1 x10^3/uL (0.0-0.7) Basophils # (Auto) 0.1 x10^3/uL (0.0-0.2) Sodium Level 140 mmol/L (136-145) Potassium Level 4.9 mmol/L (3.5-5.1) Chloride Level 106 mmol/L (98-107) Carbon Dioxide Level 26 mmol/L (21-32) Anion Gap 8 (6-14) Blood Urea Nitrogen 35 mg/dL (7-20) H Creatinine 1.3 mg/dL (0.6-1.0) H Estimated GFR (Cockcroft-Gault) 39.4 BUN/Creatinine Ratio 27 (6-20) H Glucose Level 78 mg/dL (70-99) Calcium Level 9.2 mg/dL (8.5-10.1) Total Bilirubin 0.2 mg/dL (0.2-1.0) Aspartate Amino Transferase (AST) 20 U/L (15-37) Alanine Aminotransferase (ALT) 25 U/L (14-59) Alkaline Phosphatase 101 U/L (46-116) Ammonia < 10 mcmol/L (11-34) L Total Protein 7.5 g/dL (6.4-8.2) Albumin 3.2 g/dL (3.4-5.0) L Albumin/Globulin Ratio 0.7 (1.0-1.7) L Valproic Acid Level 59 mcg/mL (50-100) Valproic Acid Last Dose Date 04/06/21 Valproic Acid Last Dose Time 1700 Current Medications: Meds: Laboratory Tests Test 04/07/21 06:00 White Blood Count 7.3 x10^3/uL Red Blood Count 3.68 x10^6/uL Hemoglobin 10.7 g/dL Hematocrit 33.1 % Mean Corpuscular Volume 90 fL Mean Corpuscular Hemoglobin 29 pg Mean Corpuscular Hemoglobin Concent 32 g/dL Red Cell Distribution Width 17.8 % Platelet Count 186 x10^3/uL Neutrophils (%) (Auto) 23 % Lymphocytes (%) (Auto) 61 % Monocytes (%) (Auto) 13 % Eosinophils (%) (Auto) 2 % Basophils (%) (Auto) 1 % Neutrophils # (Auto) 1.7 x10^3uL Lymphocytes # (Auto) 4.4 x10^3/uL Monocytes # (Auto) 1.0 x10^3/uL Eosinophils # (Auto) 0.1 x10^3/uL Basophils # (Auto) 0.1 x10^3/uL Sodium Level 140 mmol/L Potassium Level 4.9 mmol/L Chloride Level 106 mmol/L Carbon Dioxide Level 26 mmol/L Anion Gap 8 Blood Urea Nitrogen 35 mg/dL Creatinine 1.3 mg/dL Estimated GFR (Cockcroft-Gault) 39.4 BUN/Creatinine Ratio 27 Glucose Level 78 mg/dL Calcium Level 9.2 mg/dL Total Bilirubin 0.2 mg/dL Aspartate Amino Transf (AST/SGOT) 20 U/L Alanine Aminotransferase (ALT/SGPT) 25 U/L Alkaline Phosphatase 101 U/L Ammonia < 10 mcmol/L Total Protein 7.5 g/dL Albumin 3.2 g/dL Albumin/Globulin Ratio 0.7 Valproic Acid (Depakene) Level 59 mcg/mL Valproic Acid Last Dose Date 04/06/21 Valproic Acid Last Dose Time 1700 Current Medications Medications (Trade) Dose Ordered Sig/Yajaira Route PRN Reason Start Time Stop Time Status Last Admin Dose Admin Multi-Ingredient Ointment (Analgesic [place]) 1 debbie PRN QID PRN TP MUSCLE PAIN 03/27/21 16:00 04/07/21 17:29 DC Al Hydroxide/Mg Hydroxide (Mylanta Plus Xs) 15 ml PRN AFTMEALHC PRN PO DYSPEPSIA 03/27/21 16:00 04/07/21 17:29 DC Magnesium Hydroxide (Milk Of Magnesia) 2,400 mg PRN QHS PRN PO CONSTIPATION 03/27/21 16:00 04/07/21 17:29 DC Acetaminophen (Tylenol) 1,000 mg PRN Q8HRS PRN PO MILD PAIN / TEMP > 100.3'F 03/27/21 18:45 UNV Alprazolam (Xanax) 0.25 mg PRN Q4HRS PRN PO ANXIETY / AGITATION 03/27/21 18:45 04/07/21 17:29 DC 04/05/21 14:38 Diclofenac Sodium (Voltaren) 1 debbie QID TP 03/27/21 21:00 04/07/21 17:29 DC 04/07/21 12:43 Furosemide (Lasix) 40 mg DAILY PO 03/28/21 09:00 04/03/21 11:36 DC 04/03/21 09:13 Hydroxychloroquine Sulfate (Plaquenil) 200 mg DAILY PO 03/28/21 09:00 04/07/21 17:29 DC 04/07/21 08:33 Levothyroxine Sodium (Synthroid) 100 mcg DAILY06 PO 03/28/21 06:00 04/07/21 17:29 DC 04/07/21 05:21 Linezolid (Zyvox) 600 mg BID PO 03/27/21 21:00 03/29/21 10:25 DC 03/28/21 21:16 Nystatin (Mycostatin) 1 debbie PRN BID PRN TP RASH 03/27/21 18:45 04/07/21 17:29 DC Nystatin (Nystop) 1 debbie PRN BID PRN TP RASH 03/27/21 18:45 04/07/21 17:29 DC Prednisone (Prednisone) 4 mg DAILY PO 03/28/21 09:00 04/07/21 17:29 DC 04/07/21 08:32 Acetaminophen (Tylenol) 1,000 mg PRN Q6HRS PRN PO MILD PAIN / TEMP > 100.3'F 03/27/21 19:15 04/07/21 17:29 DC 04/05/21 14:38 Non-Formulary Medication (Etanercept (Enbrel)) 50 mg WEEKLY SQ 04/03/21 09:00 04/01/21 13:05 DC Cetirizine HCl (ZyrTEC) 10 mg DAILY PO 03/28/21 09:00 04/07/21 17:29 DC 04/07/21 08:33 Meclizine HCl (Antivert) 25 mg PRN TID PRN PO DIZZINESS 03/27/21 19:15 04/07/21 17:29 DC Mupirocin (Bactroban) 1 debbie PRN BID PRN TP SORES ON EXTREMITIES 03/27/21 19:15 04/07/21 17:29 DC Tetrahydrozoline HCl (Murine) 1 drop PRN TID PRN OU dry/itchy eyes 03/27/21 19:15 04/07/21 17:29 DC Oxybutynin Chloride (Ditropan) 5 mg BID PO 03/28/21 09:00 04/07/21 17:29 DC 04/07/21 08:33 Polyethylene Glycol (miraLAX) 17 gm DAILY PO 03/28/21 09:00 04/07/21 17:29 DC 04/07/21 08:33 Mirtazapine (Remeron) 7.5 mg QHS PO 03/28/21 21:00 04/02/21 18:17 DC 04/01/21 20:31 Sertraline HCl (Zoloft) 25 mg DAILY PO 03/29/21 09:00 03/31/21 21:00 DC 03/31/21 09:05 Sertraline HCl (Zoloft) 50 mg DAILY PO 04/01/21 09:00 04/07/21 17:29 DC 04/07/21 08:33 Risperidone (RisperDAL) 0.25 mg HS PO 03/28/21 21:00 04/07/21 17:29 DC 04/06/21 21:35 Doxycycline Hyclate (Vibra-Tab) 100 mg BID PO 03/28/21 21:00 04/04/21 13:00 DC 04/04/21 10:25 Trimethoprim/ Sulfamethoxazole (Bactrim Ds) 1 tab BID PO 03/28/21 21:00 04/04/21 13:00 DC 04/04/21 10:25 Lactobacillus Rhamnosus (Culturelle) 1 cap BID PO 03/28/21 21:00 04/07/21 17:29 DC 04/07/21 08:33 Divalproex Sodium (Depakote Sprinkles) 250 mg BID@0900,1700 PO 03/31/21 09:00 04/03/21 18:37 DC 04/03/21 17:00 Trazodone HCl (Desyrel) 50 mg PRN QHS PRN PO INSOMNIA, MAY REPEAT X1 03/30/21 20:00 04/07/21 17:29 DC 04/02/21 00:45 Mirtazapine (Remeron) 15 mg QHS PO 04/02/21 21:00 04/07/21 17:29 DC 04/06/21 21:35 Divalproex Sodium (Depakote Sprinkles) 375 mg BID@0900,1700 PO 04/04/21 09:00 04/07/21 17:29 DC 04/07/21 08:33 I have reviewed the current psychotropics carefully including drug interactions. Risk benefit ratio favors no change other than as noted in my dictated progress note. Diagnosis: Problems: (1) Bipolar I disorder, current or most recent episode manic, in partial remission (2) Anxiety disorder, unspecified (3) Mild cognitive impairment (4) Impulse control disorder, unspecified (5) Major depressive disorder with psychotic features DAMIR BOWIE MD Apr 07, 2021 21:58
--- NOTE | 2021-04-08 09:29 | PDOC ---
Exam Note: Baljinder Note: This note is a late entry for 04/05/2021 covers elements not covered in my initial note. Subjective: The patient was seen individually in the evening of 04/05/2021 with Nuzhat NASSAR, discussed and reviewed the chart. The patient slept 5-1/2 hours previous night. She has been less somatic, less grandiose with improved mood lability, talking about wanting to be discharged. I addressed this with her. She was given Xanax in the evening and at 1 a.m. to help with anxiety. She did better than this. Review of Systems: No CV, , pulmonary, eye, ENT system symptoms on review. Ambulation impaired with walker. Mental Status Exam: The patient is reasonably oriented. Speech less pressured. Abstraction fair. Computation impaired. Language function intact. Attention span short. Mood and affect grandiosity is improved. Laboratory Data: Reviewed. Impression: Bipolar 1 disorder manic in partial remission. Anxiety disorder unspecified. Impulse control disorder unspecified. Plan: Continue current psychotropics unchanged. Assessment: Vital Signs/I&O: Vital Signs Date Time Temp Pulse Resp B/P (MAP) Pulse Ox O2 Delivery O2 Flow Rate FiO2 04/07/21 16:11 98.6 94 20 102/69 (80) 94 I & O 04/07/21 04/07/21 04/08/21 15:00 23:00 07:00 Intake Total 720 ml Balance 720 ml Current Medications: Meds: Current Medications Medications (Trade) Dose Ordered Sig/Yajaira Route PRN Reason Start Time Stop Time Status Last Admin Dose Admin Multi-Ingredient Ointment (Analgesic [place]) 1 debbie PRN QID PRN TP MUSCLE PAIN 03/27/21 16:00 04/07/21 17:29 DC Al Hydroxide/Mg Hydroxide (Mylanta Plus Xs) 15 ml PRN AFTMEALHC PRN PO DYSPEPSIA 03/27/21 16:00 04/07/21 17:29 DC Magnesium Hydroxide (Milk Of Magnesia) 2,400 mg PRN QHS PRN PO CONSTIPATION 03/27/21 16:00 04/07/21 17:29 DC Acetaminophen (Tylenol) 1,000 mg PRN Q8HRS PRN PO MILD PAIN / TEMP > 100.3'F 03/27/21 18:45 UNV Alprazolam (Xanax) 0.25 mg PRN Q4HRS PRN PO ANXIETY / AGITATION 03/27/21 18:45 04/07/21 17:29 DC 04/05/21 14:38 Diclofenac Sodium (Voltaren) 1 debbie QID TP 03/27/21 21:00 04/07/21 17:29 DC 04/07/21 12:43 Furosemide (Lasix) 40 mg DAILY PO 03/28/21 09:00 04/03/21 11:36 DC 04/03/21 09:13 Hydroxychloroquine Sulfate (Plaquenil) 200 mg DAILY PO 03/28/21 09:00 04/07/21 17:29 DC 04/07/21 08:33 Levothyroxine Sodium (Synthroid) 100 mcg DAILY06 PO 03/28/21 06:00 04/07/21 17:29 DC 04/07/21 05:21 Linezolid (Zyvox) 600 mg BID PO 03/27/21 21:00 03/29/21 10:25 DC 03/28/21 21:16 Nystatin (Mycostatin) 1 debbie PRN BID PRN TP RASH 03/27/21 18:45 04/07/21 17:29 DC Nystatin (Nystop) 1 debbie PRN BID PRN TP RASH 03/27/21 18:45 04/07/21 17:29 DC Prednisone (Prednisone) 4 mg DAILY PO 03/28/21 09:00 04/07/21 17:29 DC 04/07/21 08:32 Acetaminophen (Tylenol) 1,000 mg PRN Q6HRS PRN PO MILD PAIN / TEMP > 100.3'F 03/27/21 19:15 04/07/21 17:29 DC 04/05/21 14:38 Non-Formulary Medication (Etanercept (Enbrel)) 50 mg WEEKLY SQ 04/03/21 09:00 04/01/21 13:05 DC Cetirizine HCl (ZyrTEC) 10 mg DAILY PO 03/28/21 09:00 04/07/21 17:29 DC 04/07/21 08:33 Meclizine HCl (Antivert) 25 mg PRN TID PRN PO DIZZINESS 03/27/21 19:15 04/07/21 17:29 DC Mupirocin (Bactroban) 1 debbie PRN BID PRN TP SORES ON EXTREMITIES 03/27/21 19:15 04/07/21 17:29 DC Tetrahydrozoline HCl (Murine) 1 drop PRN TID PRN OU dry/itchy eyes 03/27/21 19:15 04/07/21 17:29 DC Oxybutynin Chloride (Ditropan) 5 mg BID PO 03/28/21 09:00 04/07/21 17:29 DC 04/07/21 08:33 Polyethylene Glycol (miraLAX) 17 gm DAILY PO 03/28/21 09:00 04/07/21 17:29 DC 04/07/21 08:33 Mirtazapine (Remeron) 7.5 mg QHS PO 03/28/21 21:00 04/02/21 18:17 DC 04/01/21 20:31 Sertraline HCl (Zoloft) 25 mg DAILY PO 03/29/21 09:00 03/31/21 21:00 DC 03/31/21 09:05 Sertraline HCl (Zoloft) 50 mg DAILY PO 04/01/21 09:00 04/07/21 17:29 DC 04/07/21 08:33 Risperidone (RisperDAL) 0.25 mg HS PO 03/28/21 21:00 04/07/21 17:29 DC 04/06/21 21:35 Doxycycline Hyclate (Vibra-Tab) 100 mg BID PO 03/28/21 21:00 04/04/21 13:00 DC 04/04/21 10:25 Trimethoprim/ Sulfamethoxazole (Bactrim Ds) 1 tab BID PO 03/28/21 21:00 04/04/21 13:00 DC 04/04/21 10:25 Lactobacillus Rhamnosus (Culturelle) 1 cap BID PO 03/28/21 21:00 04/07/21 17:29 DC 04/07/21 08:33 Divalproex Sodium (Depakote Sprinkles) 250 mg BID@0900,1700 PO 03/31/21 09:00 04/03/21 18:37 DC 04/03/21 17:00 Trazodone HCl (Desyrel) 50 mg PRN QHS PRN PO INSOMNIA, MAY REPEAT X1 03/30/21 20:00 04/07/21 17:29 DC 04/02/21 00:45 Mirtazapine (Remeron) 15 mg QHS PO 04/02/21 21:00 04/07/21 17:29 DC 04/06/21 21:35 Divalproex Sodium (Depakote Sprinkles) 375 mg BID@0900,1700 PO 04/04/21 09:00 04/07/21 17:29 DC 04/07/21 08:33 I have reviewed the current psychotropics carefully including drug interactions. Risk benefit ratio favors no change other than as noted in my dictated progress note. Diagnosis: Problems: (1) Bipolar I disorder, current or most recent episode manic, in partial remission (2) Anxiety disorder, unspecified (3) Impulse control disorder, unspecified DAMIR BOWIE MD Apr 08, 2021 09:29
--- NOTE | 2021-04-08 10:15 | PDOC ---
Exam Note: Baljinder Note: This note is a late entry for 04/06/2021 covers elements not covered in my initial note. Subjective: The patient was seen individually in the evening of 04/06/2021 with Viviane NASSAR, discussed and reviewed the chart. The patient slept 7 hours previous night. Overall the patient has been doing better, less manic, less irritable. No suicidal ideation. Review of Systems: No CV, , pulmonary, eye, ENT system symptoms on review. Ambulation impaired with walker. Mental Status Exam: The patient is reasonably oriented. Patient had many questions about discharge plans and we addressed discharge back to her facility on Saturday 04/07. She was very pleased with this and we will check labs and valproic acid level morning of 04/07 before her discharge. She is pleasant, verbal, interactive. Speech less pressured. Abstraction fair. Computation impaired. Language function intact. Mood and affect lability less grandiose. Laboratory Data: Reviewed. Impression: Bipolar 1 disorder manic in partial remission. Anxiety disorder unspecified. Impulse control disorder unspecified. Plan: Continue current psychotropics unchanged. Assessment: Vital Signs/I&O: Vital Signs Date Time Temp Pulse Resp B/P (MAP) Pulse Ox O2 Delivery O2 Flow Rate FiO2 04/07/21 16:11 98.6 94 20 102/69 (80) 94 I & O 04/07/21 04/07/21 04/08/21 15:00 23:00 07:00 Intake Total 720 ml Balance 720 ml Current Medications: Meds: Current Medications Medications (Trade) Dose Ordered Sig/Yajaira Route PRN Reason Start Time Stop Time Status Last Admin Dose Admin Multi-Ingredient Ointment (Analgesic [place]) 1 debbie PRN QID PRN TP MUSCLE PAIN 03/27/21 16:00 04/07/21 17:29 DC Al Hydroxide/Mg Hydroxide (Mylanta Plus Xs) 15 ml PRN AFTMEALHC PRN PO DYSPEPSIA 03/27/21 16:00 04/07/21 17:29 DC Magnesium Hydroxide (Milk Of Magnesia) 2,400 mg PRN QHS PRN PO CONSTIPATION 03/27/21 16:00 04/07/21 17:29 DC Acetaminophen (Tylenol) 1,000 mg PRN Q8HRS PRN PO MILD PAIN / TEMP > 100.3'F 03/27/21 18:45 UNV Alprazolam (Xanax) 0.25 mg PRN Q4HRS PRN PO ANXIETY / AGITATION 03/27/21 18:45 04/07/21 17:29 DC 04/05/21 14:38 Diclofenac Sodium (Voltaren) 1 debbie QID TP 03/27/21 21:00 04/07/21 17:29 DC 04/07/21 12:43 Furosemide (Lasix) 40 mg DAILY PO 03/28/21 09:00 04/03/21 11:36 DC 04/03/21 09:13 Hydroxychloroquine Sulfate (Plaquenil) 200 mg DAILY PO 03/28/21 09:00 04/07/21 17:29 DC 04/07/21 08:33 Levothyroxine Sodium (Synthroid) 100 mcg DAILY06 PO 03/28/21 06:00 04/07/21 17:29 DC 04/07/21 05:21 Linezolid (Zyvox) 600 mg BID PO 03/27/21 21:00 03/29/21 10:25 DC 03/28/21 21:16 Nystatin (Mycostatin) 1 debbie PRN BID PRN TP RASH 03/27/21 18:45 04/07/21 17:29 DC Nystatin (Nystop) 1 debbie PRN BID PRN TP RASH 03/27/21 18:45 04/07/21 17:29 DC Prednisone (Prednisone) 4 mg DAILY PO 03/28/21 09:00 04/07/21 17:29 DC 04/07/21 08:32 Acetaminophen (Tylenol) 1,000 mg PRN Q6HRS PRN PO MILD PAIN / TEMP > 100.3'F 03/27/21 19:15 04/07/21 17:29 DC 04/05/21 14:38 Non-Formulary Medication (Etanercept (Enbrel)) 50 mg WEEKLY SQ 04/03/21 09:00 04/01/21 13:05 DC Cetirizine HCl (ZyrTEC) 10 mg DAILY PO 03/28/21 09:00 04/07/21 17:29 DC 04/07/21 08:33 Meclizine HCl (Antivert) 25 mg PRN TID PRN PO DIZZINESS 03/27/21 19:15 04/07/21 17:29 DC Mupirocin (Bactroban) 1 debbie PRN BID PRN TP SORES ON EXTREMITIES 03/27/21 19:15 04/07/21 17:29 DC Tetrahydrozoline HCl (Murine) 1 drop PRN TID PRN OU dry/itchy eyes 03/27/21 19:15 04/07/21 17:29 DC Oxybutynin Chloride (Ditropan) 5 mg BID PO 03/28/21 09:00 04/07/21 17:29 DC 04/07/21 08:33 Polyethylene Glycol (miraLAX) 17 gm DAILY PO 03/28/21 09:00 04/07/21 17:29 DC 04/07/21 08:33 Mirtazapine (Remeron) 7.5 mg QHS PO 03/28/21 21:00 04/02/21 18:17 DC 04/01/21 20:31 Sertraline HCl (Zoloft) 25 mg DAILY PO 03/29/21 09:00 03/31/21 21:00 DC 03/31/21 09:05 Sertraline HCl (Zoloft) 50 mg DAILY PO 04/01/21 09:00 04/07/21 17:29 DC 04/07/21 08:33 Risperidone (RisperDAL) 0.25 mg HS PO 03/28/21 21:00 04/07/21 17:29 DC 04/06/21 21:35 Doxycycline Hyclate (Vibra-Tab) 100 mg BID PO 03/28/21 21:00 04/04/21 13:00 DC 04/04/21 10:25 Trimethoprim/ Sulfamethoxazole (Bactrim Ds) 1 tab BID PO 03/28/21 21:00 04/04/21 13:00 DC 04/04/21 10:25 Lactobacillus Rhamnosus (Culturelle) 1 cap BID PO 03/28/21 21:00 04/07/21 17:29 DC 04/07/21 08:33 Divalproex Sodium (Depakote Sprinkles) 250 mg BID@0900,1700 PO 03/31/21 09:00 04/03/21 18:37 DC 04/03/21 17:00 Trazodone HCl (Desyrel) 50 mg PRN QHS PRN PO INSOMNIA, MAY REPEAT X1 03/30/21 20:00 04/07/21 17:29 DC 04/02/21 00:45 Mirtazapine (Remeron) 15 mg QHS PO 04/02/21 21:00 04/07/21 17:29 DC 04/06/21 21:35 Divalproex Sodium (Depakote Sprinkles) 375 mg BID@0900,1700 PO 04/04/21 09:00 04/07/21 17:29 DC 04/07/21 08:33 I have reviewed the current psychotropics carefully including drug interactions. Risk benefit ratio favors no change other than as noted in my dictated progress note. Diagnosis: Problems: (1) Bipolar I disorder, current or most recent episode manic, in partial remission (2) Impulse control disorder, unspecified (3) Anxiety disorder, unspecified DAMIR BOWIE MD Apr 08, 2021 10:15
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
== END 2021-04-07 16:40 | DRG 885 ==
LOC: GEROPSY 15:10
PROVIDERS: ADMIT Psychiatry & Neurology Psychiatry; ATTEND Psychiatry & Neurology Psychiatry
DX: F31.64 Bipolar disorder, current episode mixed, severe, with psychotic features (principal); B95.8 Unspecified staphylococcus as the cause of diseases classified elsewhere; L03.115 Cellulitis of right lower limb; L03.116 Cellulitis of left lower limb; F03.91 Unspecified dementia, unspecified severity, with behavioral disturbance; D63.8 Anemia in other chronic diseases classified elsewhere; E89.0 Postprocedural hypothyroidism; F41.9 Anxiety disorder, unspecified; F63.9 Impulse disorder, unspecified; I87.2 Venous insufficiency (chronic) (peripheral); J44.9 Chronic obstructive pulmonary disease, unspecified; M06.9 Rheumatoid arthritis, unspecified; M17.0 Bilateral primary osteoarthritis of knee; M81.0 Age-related osteoporosis without current pathological fracture; Z96.611 Presence of right artificial shoulder joint; G89.29 Other chronic pain; Z66 Do not resuscitate; Z20.822 Contact with and (suspected) exposure to COVID-19
CPT/HCPCS: 36415; 80053; 80061; 80164; 81001; 82140; 82306; 82607; 83036; 83540; 83550; 83735; 84436; 84443; 84480; 85025; 85379; 86592; 93005; U0003; 97530